=== PATIENT | female | born 1945 | race Caucasian/White ===

== ENCOUNTER → 2017-01-28 | Outpatient (CLI) | payer MEDICARE ==
[~2017-01-28] MED LIST: COUMADIN5 M2 PO; CYCLOBENZAPRINE10 MG PO; Coumadin10 MG PO; DILTIAZEM HCL180 MG PO; Ecotrin325 MG PO; NAPROSYN500 MG PO; PRAVACHOL80 MG PO; TOPROL XL100 MG PO
[2017-01-28 20:32] LABS: INTERNATIONAL NORM RATIO 1.3 (2.0-3.5); PROTHROMBIN TIME 14.4 SECONDS (9.0-12.4)
== END | disposition home or self-care (01) ==
LOC: LAB 19:45 → US 20:00
PROVIDERS: Family Medicine
DX: I48.91 Unspecified atrial fibrillation (principal); M79.89 Other specified soft tissue disorders

== ENCOUNTER → 2017-05-04 | Outpatient (CLI) | payer MEDICARE ==
[2017-05-04 19:16] LABS: BASO % 0.4 % (0.0-1.0); EOS # 0.2 10*3/uL (0.0-0.4); EOS % 2.4 % (1.0-4.0); HEMATOCRIT 41.1 % (37.0-47.0); HEMOGLOBIN 13.1 g/dl (12.0-16.0); LYMPH # 2.1 10*3/uL (1.3-4.4); LYMPH % 23.2 % (27.0-41.0); MEAN CELL VOLUME 86.5 fl (81.0-99.0); MEAN CORPUSCULAR HGB 27.6 pg (27.0-31.0); MEAN CORPUSCULAR HGB CONC 31.9 g/dl (33.0-37.0); MEAN PLATELET VOLUME 10.8 fl (9.6-12.3); MONO # 0.6 10*3/uL (0.1-1.0); NEUT # 6.2 10*3/uL (2.3-7.9); NEUT % 67.6 % (47.0-73.0); PLATELET COUNT AUTOMATED 274 10*3/uL (130-400); RED BLOOD COUNT 4.75 10*6/uL (4.10-5.10); RED CELL DISTRI WIDTH 13.5 % (0-14.5); WHITE BLOOD COUNT 9.2 10*3/uL (4.8-10.8)
[2017-05-04 19:24] LABS: INTERNATIONAL NORM RATIO 1.2 (2.0-3.5); PROTHROMBIN TIME 13.2 SECONDS (9.0-12.4)
[2017-05-04 19:53] LABS: ALBUMIN 3.2 gm/dl (3.1-4.5); ALKALINE PHOSPHATASE 81 U/L (45-117); BILIRUBIN, TOTAL 0.5 mg/dl (0.2-1.0); BUN 14 mg/dl (7-24); CARBON DIOXIDE 30 mmol/L (21-32); CHLORIDE 104 mmol/L (98-107); CHOLESTEROL 138 mg/dL (<200); EST GLOM FILT AFRICAN AMERICAN > 60 ml/min; GLUCOSE 131 mg/dL (65-99); HDL CHOLESTEROL 33 mg/dl (40-60); LDL CHOLESTEROL 57 mg/dL (9-159); SGOT/AST 13 IU/L (3-35); SGPT/ALT 19 U/L (12-78); SODIUM 141 mmol/L (136-145); TOTAL PROTEIN 7.3 gm/dL (6.4-8.2); TRIGLYCERIDES 240 mg/dl (<150); VLDL CHOLESTEROL 48 mg/dL (6-40)
[2017-05-04 19:59] LABS: THYROID STIM HORMONE (HS) 0.395 uIU/ml (0.358-4.75)
== END | disposition home or self-care (01) ==
LOC: LAB 18:02
PROVIDERS: Family Medicine
DX: Z00.01 Encounter for general adult medical examination with abnormal findings (principal); M48.07 Spinal stenosis, lumbosacral region; M47.896 Other spondylosis, lumbar region; I48.91 Unspecified atrial fibrillation; I10 Essential (primary) hypertension; E78.5 Hyperlipidemia, unspecified; Z79.899 Other long term (current) drug therapy

== ENCOUNTER 2017-06-21 08:14 | Inpatient (IN) | payer MEDICARE ==
[~2017-06-21] VITALS: Ht 165.1 cm; Wt 131.6 kg
[2017-06-21 08:21] VITALS: BP 166/85
[2017-06-21] MEDS ORDERED: COUMADIN5 M2 PO (08:27)
[2017-06-21 08:46] LABS: BASO % 0.5 % (0.0-1.0); EOS # 0.2 10*3/uL (0.0-0.4); EOS % 1.9 % (1.0-4.0); HEMATOCRIT 42.5 % (37.0-47.0); HEMOGLOBIN 13.5 g/dl (12.0-16.0); LYMPH # 1.6 10*3/uL (1.3-4.4); LYMPH % 17.8 % (27.0-41.0); MEAN CELL VOLUME 86.6 fl (81.0-99.0); MEAN CORPUSCULAR HGB 27.5 pg (27.0-31.0); MEAN CORPUSCULAR HGB CONC 31.8 g/dl (33.0-37.0); MEAN PLATELET VOLUME 10.5 fl (9.6-12.3); MONO # 0.4 10*3/uL (0.1-1.0); MONO % 4.7 % (3.0-9.0); NEUT # 6.6 10*3/uL (2.3-7.9); NEUT % 74.6 % (47.0-73.0); PLATELET COUNT AUTOMATED 240 10*3/uL (130-400); RED BLOOD COUNT 4.91 10*6/uL (4.10-5.10); RED CELL DISTRI WIDTH 13.5 % (0-14.5); WHITE BLOOD COUNT 8.9 10*3/uL (4.8-10.8)
[2017-06-21 08:54] LABS: ACT PARTIAL THROMBO TIME 27.6 SECONDS (20.8-31.5); INTERNATIONAL NORM RATIO 1.7 (2.0-3.5)
[2017-06-21 09:04] LABS: ALBUMIN 3.2 gm/dl (3.1-4.5); ALKALINE PHOSPHATASE 89 U/L (45-117); BUN 11 mg/dl (7-24); CHLORIDE 105 mmol/L (98-107); CPK 46 U/L (26-192); CREATININE 0.81 mg/dL (0.55-1.02); LIPASE 111 U/L (73-393); MAGNESIUM 2.2 mg/dL (1.5-2.1); POTASSIUM 4.2 mmol/L (3.5-5.1); SGOT/AST 17 IU/L (3-35); SGPT/ALT 20 U/L (12-78); SODIUM 139 mmol/L (136-145); TOTAL PROTEIN 7.6 gm/dL (6.4-8.2)
[2017-06-21 09:09] LABS: CKMB < 0.5 ng/ml (0.5-3.6); TROPONIN I < 0.015 ng/ml (<0.045)
[2017-06-21 09:30] LABS: BILIRUBIN NEGATIVE (NEGATIVE); BLOOD TRACE-LYSED (NEGATIVE); CLARITY CLEAR (CLEAR); COLOR YELLOW (YELLOW); GLUCOSE NEGATIVE (NEGATIVE); KETONE NEGATIVE (NEGATIVE); LEUKO ESTERASE NEGATIVE (NEGATIVE); NITRITE NEGATIVE (NEGATIVE); UROBILINOGEN 0.2 E.U./dl (0.2-1.0)
[2017-06-21 09:35] VITALS: BP 128/51
[2017-06-21 09:40] LABS: RBC 0-2 rbc/hpf (0-2)
--- NOTE | 2017-06-21 09:51 | NUR ---
RESTING IN NO DISTRESS. MY SPANN RN
[2017-06-21 10:20] VITALS: BP 152/70
--- NOTE | 2017-06-21 10:21 | NUR ---
A 72, admitted to 5E, under the services of ADOLFO Joe DO with a diagnosis of PALPITATIONS, DYSPNEA ON EXERTION. Chief complaint is FELT LIKE HEART WAS RACING. Patient arrived via ambulatory from ER. Monitor applied. Initial assessment completed. Vital signs taken and recorded. ADOLFO JOE DO notified of admission to the unit. Orders received. See assessment for past medical history, medications and allergies. Patient and/or family oriented to unit. [address] visitation policy reviewed. Clothing/patient valuable form completed. EARNESTINE GOLD
[2017-06-21] MEDS ORDERED: COUMADIN7.5 M1 PO (10:38)
[2017-06-21] MEDS ORDERED: LEXAPRO10 MG PO (10:39)
--- NOTE | 2017-06-21 10:45 | NUR ---
MEDICATIONS VERIFIED VIA LIST FROM PATIENT. PATIENT GETS MEDICATIONS VIA MAIL. DR. ADLER NOTIFIED.
[2017-06-21 16:00] VITALS: BP 153/60
--- NOTE | 2017-06-21 19:30 | NUR ---
ASSUMED CARE OF PT AT THIS TIME, SITTING UP IN BED FAMILY MEMBER VISITING CALL LIGHT WITH IN REACH
[2017-06-21 20:00] VITALS: BP 179/80
[2017-06-22] VITALS: BP 153/92
[2017-06-22 06:46] LABS: BASO % 0.5 % (0.0-1.0); EOS # 0.2 10*3/uL (0.0-0.4); EOS % 2.6 % (1.0-4.0); HEMATOCRIT 40.8 % (37.0-47.0); HEMOGLOBIN 13.3 g/dl (12.0-16.0); LYMPH # 1.6 10*3/uL (1.3-4.4); LYMPH % 19.5 % (27.0-41.0); MEAN CELL VOLUME 86.3 fl (81.0-99.0); MEAN CORPUSCULAR HGB 28.1 pg (27.0-31.0); MEAN CORPUSCULAR HGB CONC 32.6 g/dl (33.0-37.0); MEAN PLATELET VOLUME 10.3 fl (9.6-12.3); MONO # 0.3 10*3/uL (0.1-1.0); MONO % 4.1 % (3.0-9.0); NEUT # 5.9 10*3/uL (2.3-7.9); NEUT % 72.9 % (47.0-73.0); PLATELET COUNT AUTOMATED 237 10*3/uL (130-400); RED BLOOD COUNT 4.73 10*6/uL (4.10-5.10); RED CELL DISTRI WIDTH 13.5 % (0-14.5); WHITE BLOOD COUNT 8.1 10*3/uL (4.8-10.8)
--- NOTE | 2017-06-22 06:46 | NUR ---
SPOKE WITH DR MENDOZA, REQUESTING ORTHOSTATIC BPS WHEN PT IS AWAKE
[2017-06-22 07:12] LABS: BUN 13 mg/dl (7-24); CHLORIDE 103 mmol/L (98-107); CHOLESTEROL 153 mg/dL (<200); CREATININE 0.76 mg/dL (0.55-1.02); FREE T4 1.24 ng/dl (0.76-1.46); HDL CHOLESTEROL 32 mg/dl (40-60); LDL CHOLESTEROL 84 mg/dL (9-159); PHOSPHOROUS 3.2 mg/dL (2.5-4.9); POTASSIUM 3.8 mmol/L (3.5-5.1); SODIUM 139 mmol/L (136-145); TRIGLYCERIDES 186 mg/dl (<150); VLDL CHOLESTEROL 37 mg/dL (6-40)
[2017-06-22 07:13] LABS: INTERNATIONAL NORM RATIO 1.7 (2.0-3.5)
[2017-06-22 07:18] LABS: THYROID STIM HORMONE (HS) 0.267 uIU/ml (0.358-4.75)
[2017-06-22 08:00] VITALS: BP 155/98
--- NOTE | 2017-06-22 08:30 | NUR ---
Oyster Tonger in to talk to patient. Patient states lives at HOME IN DOUBLE WIDE with SON AND DAUGHTER. There are 5 steps in the home. Physician: NO PCP Pharmacy: [facility] Home health services: NONE Patient's level of ADLs: INDEPENDENT Patient has working utilities: YES DME: NONE Follow-up physician's appointment after d/c: WILL BE MADE PRIOR TO DC Does patient want to access PORTAL?: Discharge plan HOME. SACHIN BRUCE
--- NOTE | 2017-06-22 08:35 | NUR ---
PATIENT RESTING AT PRESENT.
--- NOTE | 2017-06-22 08:44 | NUR ---
PHYSICAL THERAPY PAtient is 100 % (I) all mobility. D/C PT, no skills/needs. Thank you for this referral. Lana Yepez,PT
--- NOTE | 2017-06-22 10:00 | NUR ---
AM MEDS TAKEN.
[2017-06-22 12:00] VITALS: BP 136/82
[2017-06-22] MEDS ORDERED: COUMADIN7.5 M1 PO (13:36)
[2017-06-22] MEDS ORDERED: DILTIAZEM CD240 MG PO (13:36)
[2017-06-22] MEDS ORDERED: VITAMIN D31000 UNI1 PO (13:41)
--- NOTE | 2017-06-22 16:06 | NUR ---
HEP LOCK REMOVED FOR DISCHARGE. Discharge instructions reviewed with patient/family. Patient receptive and verbalizes understanding. Follow-up care arranged. Written instructions given to patient/family. TANIYA CAMARILLO
== END 2017-06-22 16:06 | disposition home or self-care (01) | DRG 309 ==
LOC: ED 08:14 → 5E 09:46 → EDHOLD 09:46 → 5E 09:53
PROVIDERS: Emergency Medicine; Student in an Organized Health Care Education/Training Program; ADMIT Internal Medicine
DX: I48.0 Paroxysmal atrial fibrillation (principal); D68.69 Other thrombophilia; E83.41 Hypermagnesemia; I10 Essential (primary) hypertension; E78.5 Hyperlipidemia, unspecified; Z79.01 Long term (current) use of anticoagulants; Z85.3 Personal history of malignant neoplasm of breast; Z85.42 Personal history of malignant neoplasm of other parts of uterus; Z90.710 Acquired absence of both cervix and uterus; Z90.12 Acquired absence of left breast and nipple; Z98.51 Tubal ligation status; Z87.891 Personal history of nicotine dependence; Z82.49 Family history of ischemic heart disease and other diseases of the circulatory system; Z83.3 Family history of diabetes mellitus; Z88.8 Allergy status to other drugs, medicaments and biological substances; Z79.899 Other long term (current) drug therapy

== ENCOUNTER 2017-09-04 16:39 | Emergency (ER) | payer MEDICARE ==
[~2017-09-04] VITALS: Wt 134.3 kg
[~2017-09-04 16:39] MED LIST changes: +COUMADIN7.5 M1 PO; +DILTIAZEM CD240 MG PO; +LEXAPRO10 MG PO; +VITAMIN D31000 UNI1 PO
[2017-09-04] MEDS ORDERED: NORCO 5-325 TA1 EACH PO (18:29)
== END 2017-09-04 18:42 | disposition home or self-care (01) ==
LOC: ED 16:39
DX: M25.562 Pain in left knee (principal); Z87.891 Personal history of nicotine dependence; Z90.710 Acquired absence of both cervix and uterus; Z98.51 Tubal ligation status; Z98.890 Other specified postprocedural states; Z79.899 Other long term (current) drug therapy; Z79.01 Long term (current) use of anticoagulants; Z88.8 Allergy status to other drugs, medicaments and biological substances

== ENCOUNTER 2017-10-23 12:02 | Emergency (ER) | payer MEDICARE ==
[~2017-10-23] VITALS: Ht 165.1 cm; Wt 134.3 kg
[~2017-10-23 12:02] MED LIST changes: +NORCO 5-325 TA1 EACH PO
[2017-10-23] MEDS ORDERED: TRAMADOL HCL50 MG PO (12:11)
[2017-10-23] MEDS ORDERED: NAPROSYN500 MG PO (13:57)
== END 2017-10-23 13:59 | disposition home or self-care (01) ==
LOC: ED 12:02
DX: S93.402A Sprain of unspecified ligament of left ankle, initial encounter (principal); M77.32 Calcaneal spur, left foot; Z87.891 Personal history of nicotine dependence; Z98.51 Tubal ligation status; Z98.890 Other specified postprocedural states; Z90.710 Acquired absence of both cervix and uterus; Z88.6 Allergy status to analgesic agent; Z88.5 Allergy status to narcotic agent; Z79.01 Long term (current) use of anticoagulants; Z79.899 Other long term (current) drug therapy; X50.1XXA Overexertion from prolonged static or awkward postures, initial encounter; Y93.89 Activity, other specified; Y92.89 Other specified places as the place of occurrence of the external cause; Y99.9 Unspecified external cause status

== ENCOUNTER → 2018-08-17 | Outpatient (CLI) | payer MEDICARE ==
[~2018-08-17] MED LIST changes: +TRAMADOL HCL50 MG PO
[2018-08-17 17:12] LABS: BASO % 0.5 % (0.0-1.0); EOS # 0.3 10*3/uL (0.0-0.4); HEMOGLOBIN 13.8 g/dl (12.0-16.0); LYMPH % 24.4 % (27.0-41.0); MEAN CELL VOLUME 84.8 fl (81.0-99.0); MEAN CORPUSCULAR HGB 27.2 pg (27.0-31.0); MEAN CORPUSCULAR HGB CONC 32.1 g/dl (33.0-37.0); MEAN PLATELET VOLUME 10.9 fl (9.6-12.3); MONO # 0.5 10*3/uL (0.1-1.0); MONO % 5.7 % (3.0-9.0); NEUT # 5.4 10*3/uL (2.3-7.9); PLATELET COUNT AUTOMATED 271 10*3/uL (130-400); RED BLOOD COUNT 5.07 10*6/uL (4.10-5.10); RED CELL DISTRI WIDTH 13.8 % (0-14.5); WHITE BLOOD COUNT 8.2 10*3/uL (4.8-10.8)
[2018-08-17 17:30] LABS: ALBUMIN 3.4 gm/dl (3.1-4.5); ALKALINE PHOSPHATASE 83 U/L (45-117); BUN 18 mg/dl (7-24); CHLORIDE 105 mmol/L (98-107); CREATININE 0.84 mg/dL (0.55-1.02); POTASSIUM 4.2 mmol/L (3.5-5.1); SGOT/AST 9 IU/L (3-35); SGPT/ALT 15 U/L (12-78); SODIUM 138 mmol/L (136-145); TOTAL PROTEIN 7.4 gm/dL (6.4-8.2)
== END | disposition home or self-care (01) ==
LOC: LAB 16:42
PROVIDERS: Registered Nurse Flight
DX: R31.9 Hematuria, unspecified (principal)

== ENCOUNTER 2018-09-27 17:18 | Inpatient (IN) | payer MEDICARE ==
[~2018-09-27] VITALS: Ht 165.1 cm; Wt 125.8 kg
[2018-09-27] VITALS (8 sets, daily range): BP systolic 138–166; BP diastolic 58–78
[2018-09-27 18:19] LABS: BILIRUBIN NEGATIVE (NEGATIVE); BLOOD 3+ (NEGATIVE); CLARITY CLOUDY (CLEAR); COLOR BROWN (YELLOW); GLUCOSE NEGATIVE (NEGATIVE); KETONE TRACE (NEGATIVE); NITRITE POSITIVE (NEGATIVE); PH 5.5 (5.0-9.0); SPECIFIC GRAVITY 1.025 (1.005-1.030)
[2018-09-27 18:23] LABS: LEUKO ESTERASE TRACE (NEGATIVE)
[2018-09-27 18:24] LABS: RBC TNTC rbc/hpf (0-2)
[2018-09-27 18:24] LABS: BASO % 0.3 % (0.0-1.0); EOS # 0.1 10*3/uL (0.0-0.4); EOS % 0.9 % (1.0-4.0); HEMATOCRIT 44.7 % (37.0-47.0); HEMOGLOBIN 14.3 g/dl (12.0-16.0); LYMPH # 1.7 10*3/uL (1.3-4.4); LYMPH % 15.4 % (27.0-41.0); MEAN CELL VOLUME 84.2 fl (81.0-99.0); MEAN CORPUSCULAR HGB 26.9 pg (27.0-31.0); MEAN PLATELET VOLUME 9.8 fl (9.6-12.3); MONO # 0.6 10*3/uL (0.1-1.0); MONO % 5.5 % (3.0-9.0); NEUT # 8.8 10*3/uL (2.3-7.9); NEUT % 77.5 % (47.0-73.0); PLATELET COUNT AUTOMATED 307 10*3/uL (130-400); RED BLOOD COUNT 5.31 10*6/uL (4.10-5.10); RED CELL DISTRI WIDTH 13.6 % (0-14.5); WHITE BLOOD COUNT 11.3 10*3/uL (4.8-10.8)
[2018-09-27 18:39] LABS: ALBUMIN 3.1 gm/dl (3.1-4.5); ALKALINE PHOSPHATASE 94 U/L (45-117); BUN 15 mg/dl (7-24); CHLORIDE 105 mmol/L (98-107); CREATININE 1.05 mg/dL (0.55-1.02); LIPASE 65 U/L (73-393); POTASSIUM 4.1 mmol/L (3.5-5.1); SGOT/AST 12 IU/L (3-35); SGPT/ALT 17 U/L (12-78); SODIUM 139 mmol/L (136-145); TOTAL PROTEIN 7.6 gm/dL (6.4-8.2)
[2018-09-27 18:50] LABS: ACT PARTIAL THROMBO TIME 66.3 SECONDS (20.8-31.5)
[2018-09-27 18:53] LABS: INTERNATIONAL NORM RATIO > 11.7 (2.0-3.5)
--- NOTE | 2018-09-27 18:54 | NUR ---
PT > 130 sec, INR 11.7 L. COSME NOTIFIED
--- NOTE | 2018-09-27 19:55 | NUR ---
Time: 1954 A 73 year old FEMALE admitted to 4E under services of WANDER ADAMS DO. Pt. arrived via wheel chair from ER. Chief complaint: UTI, WARFARIN COAGULOPATHY. SHORTY PICHARDO
--- NOTE | 2018-09-27 21:30 | NUR ---
RN INITIATED FFP. WILL CONTINUE TO MONITOR.
--- NOTE | 2018-09-27 23:37 | NUR ---
DR. LAWSON CALLED AT THIS TIME PERTAINING TO ORDER FOR 4 UNITS OF FFP. ASKED IF HE WOULD LIKE ALL UNITS TO BE TRANSFUSED SINCE THIS ORDER WAS PUT IN IT THE ER AND SHE HAD ALREADY RECIEVED 5MG OF VIT K. DR. LAWSON STATED HE WOULD CALL BACK.
--- NOTE | 2018-09-27 23:40 | NUR ---
DR. LAWSON STATED TO GIVE ALL 4 UNITS
[2018-09-28] VITALS: BP 149/67
--- NOTE | 2018-09-28 01:42 | NUR ---
24 HR chart check completed.
--- NOTE | 2018-09-28 02:18 | NUR ---
MED REC REVIEWED WITH PATIENT. PATIENT STATES SHE ONLY TAKES HER METOPROLOL ONCE A DAY, BUT THE MEDICATION CLAIM HISTORY STATES SHE TAKES IT TWICE A DAY.
[2018-09-28] MEDS ORDERED: TOPROL XL100 MG PO (02:21)
--- NOTE | 2018-09-28 05:38 | NUR ---
NOTIFIED DR. LAWSON AT THIS TIME THAT PATIENTS HEART RATE HAS SLOWLY MADE ITS WAY TO TO 110'S AND WILL OCCASIONALLY GO TO 120'S. VERIFIED PATIENTS MED REC WITH HER ONCE AGAIN AND PATIENT STATES SHE TAKES TWO HEART RATE MEDICATIONS, DILTIAZEM 240 DAILY AND METOPROLOL SUCCINATE 100MG DAILY. ALSO NOTIFIED HIM THAT THERE IS A CONFLICT WITH THE MED CLAIM HISTORY AND HER METOPROLOL SUCCINATE IT LOOKS LIKE IT HAS BEEN FILLED LIKE SHE SHOULD BE TAKING IT TWICE A DAY. DR. LAWSON STATED WE SHOULD PROBABLY GET IT VERIFIED WITH FAMILY SINCE THE PATIENT GETS HER MEDS MAILED TO HER. BUT HE ORDERED FOR HER TO HAVE A ONE TIME DOSE OF METOLPROLOL SUCCINATE UNTIL WE CAN FIGURE OUT WHAT HER CORRECT FREQUENCY SHOULD BE
--- NOTE | 2018-09-28 05:46 | NUR ---
ASKED PATIENT IF ANYONE WOULD BE ABLE TO BRING IN HER PRESCRIPTION FROM HOME FOR HER METORPOLOL AND SHE STATED HER DAUGHTER WOULD BE ABLE TO
[2018-09-28 06:27] LABS: BASO % 0.2 % (0.0-1.0); EOS # 0.1 10*3/uL (0.0-0.4); EOS % 1.5 % (1.0-4.0); HEMATOCRIT 39.5 % (37.0-47.0); LYMPH # 1.3 10*3/uL (1.3-4.4); LYMPH % 15.6 % (27.0-41.0); MEAN CELL VOLUME 86.1 fl (81.0-99.0); MEAN CORPUSCULAR HGB 26.4 pg (27.0-31.0); MEAN CORPUSCULAR HGB CONC 30.6 g/dl (33.0-37.0); MEAN PLATELET VOLUME 10.6 fl (9.6-12.3); MONO # 0.6 10*3/uL (0.1-1.0); MONO % 7.1 % (3.0-9.0); NEUT # 6.5 10*3/uL (2.3-7.9); NEUT % 75.3 % (47.0-73.0); PLATELET COUNT AUTOMATED 240 10*3/uL (130-400); RED BLOOD COUNT 4.59 10*6/uL (4.10-5.10); RED CELL DISTRI WIDTH 13.4 % (0-14.5); WHITE BLOOD COUNT 8.6 10*3/uL (4.8-10.8)
[2018-09-28 06:44] LABS: HEMOGLOBIN 12.1 g/dl (12.0-16.0)
[2018-09-28 06:56] LABS: ACT PARTIAL THROMBO TIME 31.5 SECONDS (20.8-31.5); INTERNATIONAL NORM RATIO 1.7 (2.0-3.5)
[2018-09-28 06:58] LABS: ALBUMIN 2.9 gm/dl (3.1-4.5); ALKALINE PHOSPHATASE 86 U/L (45-117); BUN 12 mg/dl (7-24); CHLORIDE 106 mmol/L (98-107); CHOLESTEROL 124 mg/dL (<200); CREATININE 0.73 mg/dL (0.55-1.02); FREE T4 1.51 ng/dl (0.76-1.46); HDL CHOLESTEROL 29 mg/dl (40-60); LDL CHOLESTEROL 65 mg/dL (9-159); PHOSPHOROUS 3.1 mg/dL (2.5-4.9); POTASSIUM 3.5 mmol/L (3.5-5.1); SGOT/AST 10 IU/L (3-35); SGPT/ALT 13 U/L (12-78); SODIUM 141 mmol/L (136-145); TOTAL PROTEIN 6.8 gm/dL (6.4-8.2); TRIGLYCERIDES 148 mg/dl (<150); VLDL CHOLESTEROL 30 mg/dL (6-40)
[2018-09-28 07:54] LABS: VITAMIN D, 25-HYDROXY 37.4 ng/mL (30-100)
[2018-09-28 08:00] VITALS: BP 148/80
--- NOTE | 2018-09-28 09:00 | NUR ---
Marketing And Communications Officer in to talk to patient. Patient states lives at home with family. There are few steps in the home. Physician: jay miranda Pharmacy: mail Home health services: none Patient's level of ADLs: INDEPENDENT Patient has working utilities: all working DME: none Follow-up physician's appointment after d/c: will be made by hospitalist nurse director upon discharge Does patient want to access PORTAL?: no Discharge plan discussed with patient, patient lives at home with family, she is independent in adls and ambulation, works and drives, patient will be going home when able and denies any home needs. ARTURO ADAIR
[2018-09-28 12:00] VITALS: BP 148/73
[2018-09-28 16:00] VITALS: BP 132/61; BP 134/50
--- NOTE | 2018-09-28 19:30 | NUR ---
ASSUMED CARE OF PATIENT AT THIS TIME. PT AWAKE IN BED, RESPIRATIONS EASY, NO S/S OF DISTRESS NOTED. NO COMPLAINTS VOICED. WILL MONITOR. CALL LIGHT LEFT IN REACH.
[2018-09-28 20:00] VITALS: BP 136/73
[2018-09-29] VITALS: BP 144/84
--- NOTE | 2018-09-29 00:49 | NUR ---
PT AWAKE IN BED AT THIS TIME. REQUESTING POPSICLE AND WARM BLANKET. BOTH PROVIDED TO PATIENT PER REQUEST. NO COMPLAINTS VOICED/NO S/S OF DISTRESS NOTED. WILL MONITOR. CALL LIGHT LEFT IN REACH.
[2018-09-29 06:05] LABS: BASO % 0.4 % (0.0-1.0); EOS # 0.3 10*3/uL (0.0-0.4); EOS % 3.2 % (1.0-4.0); HEMATOCRIT 39.9 % (37.0-47.0); HEMOGLOBIN 12.8 g/dl (12.0-16.0); LYMPH # 1.6 10*3/uL (1.3-4.4); LYMPH % 18.9 % (27.0-41.0); MEAN CELL VOLUME 85.4 fl (81.0-99.0); MEAN CORPUSCULAR HGB 27.4 pg (27.0-31.0); MEAN CORPUSCULAR HGB CONC 32.1 g/dl (33.0-37.0); MEAN PLATELET VOLUME 10.5 fl (9.6-12.3); MONO # 0.5 10*3/uL (0.1-1.0); MONO % 6.3 % (3.0-9.0); NEUT % 70.7 % (47.0-73.0); PLATELET COUNT AUTOMATED 271 10*3/uL (130-400); RED BLOOD COUNT 4.67 10*6/uL (4.10-5.10); RED CELL DISTRI WIDTH 13.4 % (0-14.5); WHITE BLOOD COUNT 8.5 10*3/uL (4.8-10.8)
[2018-09-29 06:33] LABS: INTERNATIONAL NORM RATIO 1.1 (2.0-3.5)
[2018-09-29 06:36] LABS: ALBUMIN 2.8 gm/dl (3.1-4.5); ALKALINE PHOSPHATASE 83 U/L (45-117); BUN 16 mg/dl (7-24); CHLORIDE 104 mmol/L (98-107); CREATININE 0.79 mg/dL (0.55-1.02); POTASSIUM 3.8 mmol/L (3.5-5.1); SGOT/AST 10 IU/L (3-35); SGPT/ALT 14 U/L (12-78); SODIUM 139 mmol/L (136-145)
--- NOTE | 2018-09-29 07:51 | NUR ---
IN BED AWAKE ALERT AND ORIENTED X3, DENIES NEEDS OTHER THAN WANTING TO GO HOME. SEE ASSESS. WILL CONT TO MONITOR. CALL LIGHT IN REACH.
--- NOTE | 2018-09-29 09:00 | NUR ---
case management visits with patient, patient states she will be going home when able and denies any home needs
[2018-09-29] MEDS ORDERED: XARE20MG PO (10:09)
[2018-09-29] MEDS ORDERED: CIPRO500 MG PO (10:10)
--- NOTE | 2018-09-29 11:37 | NUR ---
PT DISCHARGED AT THIS TIME. IV REMOVED AND PRESSURE DRESSING APPLIED. HEART MONITOR RETURNED TO FLOOR. VERBALIZED UNDERSTANDING OF DISCHARGE INSTRUCTIONS.
== END 2018-09-29 11:37 | disposition home or self-care (01) | DRG 871 ==
LOC: ED 17:18 → 4E 19:06 → EDHOLD 19:06 → 4E 20:01
PROVIDERS: Internal Medicine; Nurse Practitioner Family; Student in an Organized Health Care Education/Training Program; ADMIT Internal Medicine
PROC: 30233K1 Transfusion of Nonautologous Frozen Plasma into Peripheral Vein, Percutaneous Approach (ICD-10-PCS; principal; 2018-09-27)
PROC: 30233L1 Transfusion of Nonautologous Fresh Plasma into Peripheral Vein, Percutaneous Approach (ICD-10-PCS; principal; 2018-09-27)
DX: A41.9 Sepsis, unspecified organism (principal); N17.0 Acute kidney failure with tubular necrosis; E44.0 Moderate protein-calorie malnutrition; Z68.42 Body mass index [BMI] 45.0-49.9, adult; N30.01 Acute cystitis with hematuria; T45.515A Adverse effect of anticoagulants, initial encounter; I48.0 Paroxysmal atrial fibrillation; R79.1 Abnormal coagulation profile; I10 Essential (primary) hypertension; E66.9 Obesity, unspecified; E11.65 Type 2 diabetes mellitus with hyperglycemia; Z79.4 Long term (current) use of insulin; E53.9 Vitamin B deficiency, unspecified; E05.90 Thyrotoxicosis, unspecified without thyrotoxic crisis or storm; Z90.710 Acquired absence of both cervix and uterus; Z98.51 Tubal ligation status; Z87.891 Personal history of nicotine dependence; Z83.6 Family history of other diseases of the respiratory system; Z83.3 Family history of diabetes mellitus; Z82.49 Family history of ischemic heart disease and other diseases of the circulatory system; M54.30 Sciatica, unspecified side

== ENCOUNTER → 2018-10-15 | Outpatient (CLI) | payer MEDICARE ==
[~2018-10-15] MED LIST changes: +CIPRO500 MG PO; +XARE20MG PO
== END | disposition home or self-care (01) ==
LOC: CT 09:00
DX: K43.9 Ventral hernia without obstruction or gangrene (principal); R91.1 Solitary pulmonary nodule; K59.00 Constipation, unspecified; I10 Essential (primary) hypertension; Z90.49 Acquired absence of other specified parts of digestive tract; Z90.710 Acquired absence of both cervix and uterus; Z85.3 Personal history of malignant neoplasm of breast

== ENCOUNTER → 2018-12-21 | Outpatient (CLI) | payer MEDICARE ==
[~2018-12-21] MED LIST changes: +DILTIAZEM 24HR360 MG PO; +GLIPIZIDE XL2.5 M1 PO; -LEXAPRO10 MG PO; +LEXAPRO20 MG PO; +ZESTRIL10 MG PO
== END | disposition home or self-care (01) ==
LOC: RESCLI 01:44
DX: I48.0 Paroxysmal atrial fibrillation (principal); E78.5 Hyperlipidemia, unspecified; I10 Essential (primary) hypertension; F32.9 Major depressive disorder, single episode, unspecified; E55.9 Vitamin D deficiency, unspecified; Z79.899 Other long term (current) drug therapy; Z79.82 Long term (current) use of aspirin; Z87.891 Personal history of nicotine dependence; Z88.8 Allergy status to other drugs, medicaments and biological substances

== ENCOUNTER → 2019-01-27 | Outpatient (CLI) | payer MEDICARE ==
--- NOTE | ~2019-01-27 | EKG ---
[place], [place] ELECTROCARDIOGRAM REPORT NAME: ZARIA HILLIARD UNIT #: [id number] ROOM: DOCTOR: EPIPHANY DRAFT REPORT BIRTHDATE: [birth year] [facility] Test Date: 2019-01-27 Test Time: 16:43:34 Pat Name: ZARIA HILLIARD Department: Room: Gender: F Glass Tinter: 18 : 1945 Requested By: LIZA ZAMORA Order Number: [id number] Reading MD: Facundo Nunez MD Measurements Intervals Grady Rate: 54 P: AK: QRS: -5 QRSD: 127 T: 26 QT: 489 QTc: 464 Interpretive Statements Atrial flutter IVCD, consider atypical RBBB Anterior infarct, old Electronically Signed On 02-02-2019 14:26:26 PDT by Facundo Nunez MD CM:EKGRPT:ELECTROCARDIOGRAM REPORT [id number] LIZA SERRANO DRAFT REPORT LIZA ZAMORA
== END | disposition home or self-care (01) ==
LOC: US 00:47
DX: E04.1 Nontoxic single thyroid nodule (principal)

== ENCOUNTER → 2019-05-21 | Outpatient (CLI) | payer MEDICARE ==
[2019-05-21 15:15] LABS: HEMATOCRIT 41.4 % (37.0-47.0); HEMOGLOBIN 12.8 g/dl (12.0-16.0); MEAN CELL VOLUME 88.3 fl (81.0-99.0); MEAN CORPUSCULAR HGB 27.3 pg (27.0-31.0); MEAN CORPUSCULAR HGB CONC 30.9 g/dl (33.0-37.0); RED BLOOD COUNT 4.69 10*6/uL (4.10-5.10); RED CELL DISTRI WIDTH 13.8 % (0-14.5); WHITE BLOOD COUNT 8.1 10*3/uL (4.8-10.8)
[2019-05-21 15:32] LABS: ALBUMIN 3.2 gm/dl (3.1-4.5); ALKALINE PHOSPHATASE 79 U/L (45-117); BUN 15 mg/dl (7-24); CHLORIDE 105 mmol/L (98-107); CHOLESTEROL 144 mg/dL (<200); HDL CHOLESTEROL 33 mg/dl (40-60); LDL CHOLESTEROL 78 mg/dL (9-159); POTASSIUM 4.5 mmol/L (3.5-5.1); SGOT/AST 12 IU/L (3-35); SGPT/ALT 13 U/L (12-78); SODIUM 139 mmol/L (136-145); TOTAL PROTEIN 7.5 gm/dL (6.4-8.2); TRIGLYCERIDES 166 mg/dl (<150); VLDL CHOLESTEROL 33 mg/dL (6-40)
[2019-05-21 15:40] LABS: THYROID STIM HORMONE (HS) 0.085 uIU/ml (0.358-4.75)
== END | disposition home or self-care (01) ==
LOC: LAB 14:20
PROVIDERS: Registered Nurse Flight
DX: E11.9 Type 2 diabetes mellitus without complications (principal); I10 Essential (primary) hypertension; E04.1 Nontoxic single thyroid nodule; E78.5 Hyperlipidemia, unspecified

== ENCOUNTER → 2019-06-08 | Outpatient (CLI) | payer MEDICARE | END | disposition home or self-care (01) | LOC: LAB 11:33 | DX: C34.32 Malignant neoplasm of lower lobe, left bronchus or lung (principal); E11.9 Type 2 diabetes mellitus without complications; I10 Essential (primary) hypertension; E04.1 Nontoxic single thyroid nodule; E78.5 Hyperlipidemia, unspecified; Z87.891 Personal history of nicotine dependence ==

== ENCOUNTER → 2019-07-22 | Outpatient (CLI) | payer MEDICARE ==
[2019-07-22 09:53] LABS: CREATININE 0.94 mg/dL (0.55-1.02)
== END | disposition home or self-care (01) ==
LOC: CT 09:00 → LAB 09:22
PROVIDERS: Internal Medicine Hematology & Oncology
DX: C34.92 Malignant neoplasm of unspecified part of left bronchus or lung (principal); C34.32 Malignant neoplasm of lower lobe, left bronchus or lung; D05.11 Intraductal carcinoma in situ of right breast; Z85.40 Personal history of malignant neoplasm of unspecified female genital organ

== ENCOUNTER 2019-08-18 22:59 | Emergency (ER) | payer MEDICARE ==
[~2019-08-18] VITALS: Ht 165.1 cm; Wt 126.6 kg
--- NOTE | ~2019-08-18 | EKG ---
[place], [place] ELECTROCARDIOGRAM REPORT NAME: ZARIA HILLIARD UNIT #: [id number] ROOM: DOCTOR: EPIPHANY DRAFT REPORT BIRTHDATE: [birth year] [facility] Test Date: 2019-08-18 Test Time: 23:44:24 Pat Name: ZARIA HILLIARD Department: Room: Gender: F Aviation Neuropsychologist: : 1945 Requested By: PIPO VAZQUEZ Order Number: [id number] Reading MD: Earnest Pardo MD Measurements Intervals Malone Rate: 74 P: SD: QRS: -3 QRSD: 87 T: 17 QT: 409 QTc: 454 Interpretive Statements Atrial flutter/fibrillation Second deg AVB, Mobitz I (Wenckebach) Borderline low voltage, extremity leads Probable anteroseptal infarct, old Compared to ECG 01/27/2019 16:43:34 No significant changes Electronically Signed On 08-20-2019 8:49:05 PST by Earnest Pardo MD CM:EKGRPT:ELECTROCARDIOGRAM REPORT [id number] IPPO VAZQUEZ EPIPHANY DRAFT REPORT PIPO VAZQUEZ
[2019-08-18 23:22] LABS: BASO % 0.5 % (0.0-1.0); EOS # 0.2 10*3/uL (0.0-0.4); EOS % 1.9 % (1.0-4.0); HEMATOCRIT 40.2 % (37.0-47.0); LYMPH # 1.9 10*3/uL (1.3-4.4); LYMPH % 21.9 % (27.0-41.0); MEAN CELL VOLUME 89.9 fl (81.0-99.0); MEAN CORPUSCULAR HGB 29.1 pg (27.0-31.0); MEAN CORPUSCULAR HGB CONC 32.3 g/dl (33.0-37.0); MEAN PLATELET VOLUME 10.4 fl (9.6-12.3); MONO # 0.7 10*3/uL (0.1-1.0); MONO % 7.5 % (3.0-9.0); NEUT # 5.9 10*3/uL (2.3-7.9); NEUT % 67.7 % (47.0-73.0); PLATELET COUNT AUTOMATED 223 10*3/uL (130-400); RED BLOOD COUNT 4.47 10*6/uL (4.10-5.10); RED CELL DISTRI WIDTH 13.4 % (0-14.5); WHITE BLOOD COUNT 8.7 10*3/uL (4.8-10.8)
[2019-08-18 23:35] LABS: ACT PARTIAL THROMBO TIME 23.6 SECONDS (20.0-32.1); INTERNATIONAL NORM RATIO 0.9 (2.0-3.5)
[2019-08-18 23:39] LABS: ALKALINE PHOSPHATASE 53 U/L (45-117); BUN 18 mg/dl (7-24); CHLORIDE 107 mmol/L (98-107); CREATININE 0.86 mg/dL (0.55-1.02); LIPASE 107 U/L (73-393); POTASSIUM 4.2 mmol/L (3.5-5.1); SGOT/AST 9 IU/L (3-35); SGPT/ALT 13 U/L (12-78); SODIUM 138 mmol/L (136-145)
[2019-08-18 23:44] LABS: TROPONIN I < 0.015 ng/ml (<0.045)
[2019-08-19 01:24] LABS: BILIRUBIN NEGATIVE (NEGATIVE); BLOOD NEGATIVE (NEGATIVE); CLARITY CLEAR (CLEAR); COLOR YELLOW (YELLOW); GLUCOSE NEGATIVE (NEGATIVE); KETONE NEGATIVE (NEGATIVE); LEUKO ESTERASE NEGATIVE (NEGATIVE); NITRITE NEGATIVE (NEGATIVE); PH 5.5 (5.0-9.0); SPECIFIC GRAVITY <= 1.005 (1.005-1.030); UROBILINOGEN 0.2 E.U./dl (0.2-1.0)
[2019-08-19 01:30] LABS: BACTERIA TRACE; RBC 0-2 rbc/hpf (0-2)
== END 2019-08-19 03:50 | disposition short-term general hospital (02) ==
LOC: ED 22:59
PROVIDERS: Nurse Practitioner Family
DX: I65.22 Occlusion and stenosis of left carotid artery (principal); R47.01 Aphasia; I10 Essential (primary) hypertension; E11.9 Type 2 diabetes mellitus without complications; I48.91 Unspecified atrial fibrillation; E78.5 Hyperlipidemia, unspecified; I48.0 Paroxysmal atrial fibrillation; Z88.6 Allergy status to analgesic agent; Z88.8 Allergy status to other drugs, medicaments and biological substances; Z79.899 Other long term (current) drug therapy; Z87.891 Personal history of nicotine dependence

== ENCOUNTER → 2019-10-06 | Outpatient (CLI) | payer MEDICARE | END | disposition home or self-care (01) | LOC: RESCLI 08:54 | DX: Z12.11 Encounter for screening for malignant neoplasm of colon (principal); I48.0 Paroxysmal atrial fibrillation; E78.5 Hyperlipidemia, unspecified; I10 Essential (primary) hypertension; E55.9 Vitamin D deficiency, unspecified; F32.9 Major depressive disorder, single episode, unspecified; C50.911 Malignant neoplasm of unspecified site of right female breast; G47.30 Sleep apnea, unspecified; I48.92 Unspecified atrial flutter; R00.0 Tachycardia, unspecified; R73.03 Prediabetes; Z79.4 Long term (current) use of insulin; Z79.899 Other long term (current) drug therapy; Z88.8 Allergy status to other drugs, medicaments and biological substances ==

== ENCOUNTER → 2019-10-28 | Outpatient (CLI) | payer MEDICARE | END | disposition home or self-care (01) | LOC: CT 09:00 | DX: I25.10 Atherosclerotic heart disease of native coronary artery without angina pectoris (principal); C34.32 Malignant neoplasm of lower lobe, left bronchus or lung; C34.92 Malignant neoplasm of unspecified part of left bronchus or lung; D05.11 Intraductal carcinoma in situ of right breast; Z85.42 Personal history of malignant neoplasm of other parts of uterus; Z90.12 Acquired absence of left breast and nipple ==

== ENCOUNTER → 2019-12-01 | Outpatient (CLI) | payer MEDICARE ==
[2019-12-01 11:34] LABS: BASO % 0.4 % (0.0-1.0); EOS # 0.2 10*3/uL (0.0-0.4); EOS % 1.9 % (1.0-4.0); HEMATOCRIT 40.3 % (37.0-47.0); HEMOGLOBIN 12.6 g/dl (12.0-16.0); LYMPH # 1.5 10*3/uL (1.3-4.4); LYMPH % 13.5 % (27.0-41.0); MEAN CELL VOLUME 88.8 fl (81.0-99.0); MEAN CORPUSCULAR HGB 27.8 pg (27.0-31.0); MEAN CORPUSCULAR HGB CONC 31.3 g/dl (33.0-37.0); MEAN PLATELET VOLUME 9.9 fl (9.6-12.3); MONO # 0.5 10*3/uL (0.1-1.0); MONO % 4.5 % (3.0-9.0); NEUT # 8.7 10*3/uL (2.3-7.9); NEUT % 79.2 % (47.0-73.0); PLATELET COUNT AUTOMATED 213 10*3/uL (130-400); RED BLOOD COUNT 4.54 10*6/uL (4.10-5.10); RED CELL DISTRI WIDTH 13.1 % (0-14.5)
[2019-12-01 11:51] LABS: ALBUMIN 2.8 gm/dl (3.1-4.5); ALKALINE PHOSPHATASE 68 U/L (45-117); BUN 13 mg/dl (7-24); CHLORIDE 107 mmol/L (98-107); CREATININE 0.93 mg/dL (0.55-1.02); POTASSIUM 4.6 mmol/L (3.5-5.1); SGOT/AST 9 IU/L (3-35); SGPT/ALT 12 U/L (12-78); SODIUM 139 mmol/L (136-145); TOTAL PROTEIN 6.9 gm/dL (6.4-8.2)
== END | disposition home or self-care (01) ==
LOC: LAB 00:29 → RESCLI 00:29
PROVIDERS: Internal Medicine Hematology & Oncology
DX: C34.92 Malignant neoplasm of unspecified part of left bronchus or lung (principal); C34.32 Malignant neoplasm of lower lobe, left bronchus or lung; D05.11 Intraductal carcinoma in situ of right breast; Z85.42 Personal history of malignant neoplasm of other parts of uterus

== ENCOUNTER → 2020-03-26 | Outpatient (CLI) | payer MEDICARE ==
[2020-03-26 14:48] LABS: BASO % 0.3 % (0.0-1.0); EOS # 0.1 10*3/uL (0.0-0.4); HEMATOCRIT 39.6 % (37.0-47.0); LYMPH # 1.3 10*3/uL (1.3-4.4); LYMPH % 11.8 % (27.0-41.0); MEAN CELL VOLUME 87.4 fl (81.0-99.0); MEAN CORPUSCULAR HGB 27.4 pg (27.0-31.0); MEAN CORPUSCULAR HGB CONC 31.3 g/dl (33.0-37.0); MEAN PLATELET VOLUME 10.2 fl (9.6-12.3); MONO # 0.4 10*3/uL (0.1-1.0); MONO % 3.8 % (3.0-9.0); NEUT # 9.3 10*3/uL (2.3-7.9); NEUT % 82.4 % (47.0-73.0); PLATELET COUNT AUTOMATED 279 10*3/uL (130-400); RED BLOOD COUNT 4.53 10*6/uL (4.10-5.10); WHITE BLOOD COUNT 11.3 10*3/uL (4.8-10.8)
[2020-03-26 15:07] LABS: ALBUMIN 2.7 gm/dl (3.1-4.5); ALKALINE PHOSPHATASE 76 U/L (45-117); BUN 16 mg/dl (7-24); CHLORIDE 105 mmol/L (98-107); CREATININE 0.93 mg/dL (0.55-1.02); POTASSIUM 4.5 mmol/L (3.5-5.1); SGOT/AST 7 IU/L (3-35); SGPT/ALT 13 U/L (12-78); SODIUM 136 mmol/L (136-145); TOTAL PROTEIN 7.4 gm/dL (6.4-8.2)
== END | disposition home or self-care (01) ==
LOC: CT 11:00 → LAB 13:54 → CT 14:00
PROVIDERS: Internal Medicine Hematology & Oncology
DX: C34.92 Malignant neoplasm of unspecified part of left bronchus or lung (principal); C34.32 Malignant neoplasm of lower lobe, left bronchus or lung; D05.11 Intraductal carcinoma in situ of right breast; Z85.42 Personal history of malignant neoplasm of other parts of uterus

== ENCOUNTER 2020-07-01 15:28 | Emergency (ER) | payer MEDICARE ==
[~2020-07-01] VITALS: Ht 165.1 cm; Wt 135.6 kg
[2020-07-01 16:13] LABS: BASO % 0.2 % (0.0-1.0); EOS # 0.2 10*3/uL (0.0-0.4); HEMATOCRIT 38.9 % (37.0-47.0); LYMPH # 1.1 10*3/uL (1.3-4.4); LYMPH % 12.6 % (27.0-41.0); MEAN CELL VOLUME 84.6 fl (81.0-99.0); MEAN CORPUSCULAR HGB 25.4 pg (27.0-31.0); MEAN CORPUSCULAR HGB CONC 30.1 g/dl (33.0-37.0); MEAN PLATELET VOLUME 9.6 fl (9.6-12.3); MONO # 0.4 10*3/uL (0.1-1.0); MONO % 4.9 % (3.0-9.0); NEUT # 6.8 10*3/uL (2.3-7.9); NEUT % 79.6 % (47.0-73.0); PLATELET COUNT AUTOMATED 277 10*3/uL (130-400); RED CELL DISTRI WIDTH 15.4 % (0-14.5); WHITE BLOOD COUNT 8.5 10*3/uL (4.8-10.8)
[2020-07-01 16:26] LABS: ACT PARTIAL THROMBO TIME 25.2 SECONDS (20.0-32.1)
[2020-07-01 16:32] LABS: ALBUMIN 2.7 gm/dl (3.1-4.5); ALKALINE PHOSPHATASE 74 U/L (45-117); BUN 13 mg/dl (7-24); CHLORIDE 108 mmol/L (98-107); CREATININE 0.85 mg/dL (0.55-1.02); POTASSIUM 4.3 mmol/L (3.5-5.1); SGOT/AST 7 IU/L (3-35); SGPT/ALT 10 U/L (12-78); SODIUM 138 mmol/L (136-145); TOTAL PROTEIN 7.3 gm/dL (6.4-8.2)
[2020-07-01 16:37] LABS: TROPONIN I < 0.015 ng/ml (<0.045)
[2020-07-01 16:40] LABS: THYROID STIM HORMONE (HS) 0.138 uIU/ml (0.358-4.75)
== END 2020-07-01 17:38 | disposition home or self-care (01) ==
LOC: EDSTATUS 15:28 → ED 15:29
PROVIDERS: Emergency Medicine
DX: I48.92 Unspecified atrial flutter (principal); E03.9 Hypothyroidism, unspecified; I10 Essential (primary) hypertension; E78.5 Hyperlipidemia, unspecified; I48.0 Paroxysmal atrial fibrillation; Z88.8 Allergy status to other drugs, medicaments and biological substances; Z79.899 Other long term (current) drug therapy; Z79.01 Long term (current) use of anticoagulants

== ENCOUNTER → 2020-07-11 | Outpatient (CLI) | payer MEDICARE | END | disposition home or self-care (01) | LOC: CT 13:17 | PROVIDERS: ATTEND Internal Medicine Hematology & Oncology | DX: K57.30 Diverticulosis of large intestine without perforation or abscess without bleeding (principal); K43.9 Ventral hernia without obstruction or gangrene; M47.815 Spondylosis without myelopathy or radiculopathy, thoracolumbar region; D05.11 Intraductal carcinoma in situ of right breast; C34.92 Malignant neoplasm of unspecified part of left bronchus or lung; C34.32 Malignant neoplasm of lower lobe, left bronchus or lung; Z85.42 Personal history of malignant neoplasm of other parts of uterus; Z51.11 Encounter for antineoplastic chemotherapy; Z51.12 Encounter for antineoplastic immunotherapy ==

== ENCOUNTER → 2020-10-15 | Outpatient (CLI) | payer MEDICARE ==
[~2020-10-15] MED LIST changes: +ATORVASTATIN CA40 M1 PO; +AUGMENTIN 875875 MG PO; +BUMETANIDE1 MG PO; +DILTIAZEM 24HR180 MG PO; +FLECAINIDE ACE100 M1 PO; +METOPROLOL SUC100 M1 PO; +METOPROLOL SUCC50 M1 PO; +NATURE'S BLEND F1 MG PO; +NYAMYC15 GM T; +OXYBUTYNIN CHLOR5 M1 PO; +PRAMIPEXOLE0.125 MG PO; +PREDNISONE10 MG PO
== END | disposition home or self-care (01) ==
LOC: CT 14:00
PROVIDERS: ATTEND Internal Medicine Hematology & Oncology
DX: K57.90 Diverticulosis of intestine, part unspecified, without perforation or abscess without bleeding (principal); K42.9 Umbilical hernia without obstruction or gangrene; E04.1 Nontoxic single thyroid nodule; R71.8 Other abnormality of red blood cells; C34.92 Malignant neoplasm of unspecified part of left bronchus or lung; I25.10 Atherosclerotic heart disease of native coronary artery without angina pectoris; R59.0 Localized enlarged lymph nodes; Z51.12 Encounter for antineoplastic immunotherapy; Z90.710 Acquired absence of both cervix and uterus; Z90.49 Acquired absence of other specified parts of digestive tract; Z85.42 Personal history of malignant neoplasm of other parts of uterus

== ENCOUNTER 2020-10-18 17:55 | Emergency (ER) | payer MEDICARE ==
[~2020-10-18] VITALS: Wt 140.2 kg
[~2020-10-18 17:55] MED LIST changes: -ATORVASTATIN CA40 M1 PO; -AUGMENTIN 875875 MG PO; -BUMETANIDE1 MG PO; -DILTIAZEM 24HR180 MG PO; -FLECAINIDE ACE100 M1 PO; -METOPROLOL SUC100 M1 PO; -METOPROLOL SUCC50 M1 PO; -NATURE'S BLEND F1 MG PO; -NYAMYC15 GM T; -OXYBUTYNIN CHLOR5 M1 PO; -PRAMIPEXOLE0.125 MG PO; -PREDNISONE10 MG PO
== END 2020-10-18 20:18 | disposition home or self-care (01) ==
LOC: ED 17:55
DX: R00.0 Tachycardia, unspecified (principal); Z88.8 Allergy status to other drugs, medicaments and biological substances; Z79.899 Other long term (current) drug therapy; Z87.891 Personal history of nicotine dependence

== ENCOUNTER 2020-10-24 17:24 | Inpatient (IN) | payer MEDICARE ==
[~2020-10-24] VITALS: Ht 165 cm; Wt 144.7 kg
[2020-10-24 17:30] VITALS: BP 158/66
[2020-10-24 18:26] LABS: HEMATOCRIT 35.1 % (37.0-47.0); MEAN CELL VOLUME 79.6 fl (81.0-99.0); MEAN CORPUSCULAR HGB 23.4 pg (27.0-31.0); MEAN CORPUSCULAR HGB CONC 29.3 g/dl (33.0-37.0); MEAN PLATELET VOLUME 9.3 fl (9.6-12.3); PLATELET COUNT AUTOMATED 420 10*3/uL (130-400); RED BLOOD COUNT 4.41 10*6/uL (4.10-5.10); RED CELL DISTRI WIDTH 16.1 % (0-14.5); WHITE BLOOD COUNT 22.1 10*3/uL (4.8-10.8)
[2020-10-24 18:37] LABS: ACT PARTIAL THROMBO TIME 24.3 SECONDS (20.0-32.1); INTERNATIONAL NORM RATIO 1.1 (2.0-3.5)
[2020-10-24 18:41] LABS: ALBUMIN 2.2 gm/dl (3.1-4.5); ALKALINE PHOSPHATASE 71 U/L (45-117); BUN 11 mg/dl (7-24); CHLORIDE 103 mmol/L (98-107); CREATININE 0.81 mg/dL (0.55-1.02); LIPASE 47 U/L (73-393); POTASSIUM 3.9 mmol/L (3.5-5.1); SGOT/AST 7 IU/L (3-35); SGPT/ALT 10 U/L (12-78); SODIUM 136 mmol/L (136-145); TOTAL PROTEIN 6.4 gm/dL (6.4-8.2)
[2020-10-24 18:42] LABS: TROPONIN I < 0.015 ng/ml (<0.045)
[2020-10-24 18:57] LABS: TOTAL CELLS COUNTED 100 #CELLS
[2020-10-24 18:58] LABS: BURR CELLS FEW; OVALOCYTES FEW; PLATELET SUFFICIENCY NORMAL (NORMAL)
[2020-10-24 20:25] VITALS: BP 136/95
[2020-10-24 20:29] LABS: BILIRUBIN 1+ (Negative); BLOOD Negative (Negative); CLARITY Cloudy (Clear); COLOR Dark Yellow (Yellow); GLUCOSE Negative (Negative); KETONE Trace (Negative); LEUKO ESTERASE Negative (Negative); NITRITE Negative (Negative); SPECIFIC GRAVITY >= 1.030 (1.001-1.030)
[2020-10-24 20:34] LABS: BACTERIA 2+
[2020-10-24 20:35] LABS: EPITHELIAL CELLS 0-2; FINE GRANULAR CAST 0-2; RBC 0-2 rbc/hpf (0-2); WBC 0-2 wbc/hpf (0-5)
[2020-10-24] MEDS ORDERED: DILTIAZEM 24HR180 MG PO (23:18)
[2020-10-24] MEDS ORDERED: TRAMADOL HCL50 MG PO (23:18)
[2020-10-24] MEDS ORDERED: OXYBUTYNIN CHLOR5 M1 PO (23:19)
[2020-10-24] MEDS ORDERED: METOPROLOL SUC100 M1 PO (23:20)
[2020-10-24] MEDS ORDERED: ATORVASTATIN CA40 M1 PO (23:24)
[2020-10-25] VITALS (7 sets, daily range): BP systolic 87–130; BP diastolic 40–70
[2020-10-25 05:36] LABS: ALBUMIN 1.9 gm/dl (3.1-4.5); ALKALINE PHOSPHATASE 61 U/L (45-117); BUN 13 mg/dl (7-24); CHLORIDE 101 mmol/L (98-107); CHOLESTEROL 87 mg/dL (<200); CREATININE 0.96 mg/dL (0.55-1.02); HDL CHOLESTEROL 29 mg/dl (40-60); LDH 178 U/L (84-246); LDL CHOLESTEROL 38 mg/dL (9-159); POTASSIUM 4.2 mmol/L (3.5-5.1); SGOT/AST 5 IU/L (3-35); SGPT/ALT 8 U/L (12-78); SODIUM 133 mmol/L (136-145); TRIGLYCERIDES 101 mg/dl (<150); VLDL CHOLESTEROL 20 mg/dL (6-40)
[2020-10-25 05:42] LABS: FREE T4 1.86 ng/dl (0.76-1.46); THYROID STIM HORMONE (HS) 0.228 uIU/ml (0.358-4.75); TOTAL PROTEIN 6.1 gm/dL (6.4-8.2)
[2020-10-25 05:57] LABS: HEMATOCRIT 30.5 % (37.0-47.0); MEAN CELL VOLUME 82.2 fl (81.0-99.0); MEAN CORPUSCULAR HGB 23.5 pg (27.0-31.0); MEAN CORPUSCULAR HGB CONC 28.5 g/dl (33.0-37.0); MEAN PLATELET VOLUME 9.7 fl (9.6-12.3); PLATELET COUNT AUTOMATED 347 10*3/uL (130-400); RED BLOOD COUNT 3.71 10*6/uL (4.10-5.10); RED CELL DISTRI WIDTH 16.3 % (0-14.5)
[2020-10-25 07:10] LABS: FERRITIN 150.3 ng/mL (10.0-291.0)
[2020-10-25 07:54] LABS: BURR CELLS MODERATE; PLATELET SUFFICIENCY NORMAL (NORMAL); TOTAL CELLS COUNTED 100 #CELLS
[2020-10-26] VITALS: BP 109/43
[2020-10-26 05:12] VITALS: BP 123/60
[2020-10-26 06:06] LABS: ALKALINE PHOSPHATASE 69 U/L (45-117); BUN 22 mg/dl (7-24); CHLORIDE 101 mmol/L (98-107); CREATININE 0.88 mg/dL (0.55-1.02); LDH 173 U/L (84-246); POTASSIUM 4.6 mmol/L (3.5-5.1); SGOT/AST 13 IU/L (3-35); SGPT/ALT 14 U/L (12-78); SODIUM 133 mmol/L (136-145); TOTAL PROTEIN 6.6 gm/dL (6.4-8.2)
[2020-10-26 06:09] LABS: MEAN CELL VOLUME 81.6 fl (81.0-99.0); MEAN CORPUSCULAR HGB 23.2 pg (27.0-31.0); MEAN CORPUSCULAR HGB CONC 28.4 g/dl (33.0-37.0); MEAN PLATELET VOLUME 9.9 fl (9.6-12.3); PLATELET COUNT AUTOMATED 352 10*3/uL (130-400); WHITE BLOOD COUNT 23.3 10*3/uL (4.8-10.8)
[2020-10-26 06:35] LABS: BURR CELLS FEW; OVALOCYTES FEW; PLATELET SUFFICIENCY NORMAL (NORMAL); POLYCHROMASIA SLIGHT; TOTAL CELLS COUNTED 100 #CELLS
[2020-10-26 08:00] VITALS: BP 118/88
[2020-10-26 11:59] VITALS: BP 120/88
[2020-10-26 16:45] VITALS: BP 128/56
[2020-10-26 20:00] VITALS: BP 144/78
[2020-10-27] VITALS: BP 128/64
[2020-10-27 06:51] LABS: HEMATOCRIT 32.7 % (37.0-47.0); MEAN CELL VOLUME 81.8 fl (81.0-99.0); MEAN CORPUSCULAR HGB CONC 28.1 g/dl (33.0-37.0); MEAN PLATELET VOLUME 9.8 fl (9.6-12.3); PLATELET COUNT AUTOMATED 428 10*3/uL (130-400); RED CELL DISTRI WIDTH 16.1 % (0-14.5); WHITE BLOOD COUNT 18.4 10*3/uL (4.8-10.8)
[2020-10-27 07:13] LABS: ALBUMIN 2.3 gm/dl (3.1-4.5); BUN 21 mg/dl (7-24); CHLORIDE 100 mmol/L (98-107); CREATININE 0.85 mg/dL (0.55-1.02); POTASSIUM 4.6 mmol/L (3.5-5.1); SGOT/AST 14 IU/L (3-35); SODIUM 134 mmol/L (136-145)
[2020-10-27 07:19] LABS: ALKALINE PHOSPHATASE 61 U/L (45-117); LDH 186 U/L (84-246); SGPT/ALT 20 U/L (12-78); TOTAL PROTEIN 6.6 gm/dL (6.4-8.2)
[2020-10-27 07:59] LABS: OVALOCYTES FEW; PLATELET SUFFICIENCY HIGH (NORMAL); TOTAL CELLS COUNTED 100 #CELLS
[2020-10-27 08:00] VITALS: BP 138/80
[2020-10-27 12:00] VITALS: BP 150/92
[2020-10-27 16:00] VITALS: BP 136/74
[2020-10-27 20:00] VITALS: BP 133/77
[2020-10-28] VITALS: BP 155/90
[2020-10-28 06:29] LABS: HEMATOCRIT 33.3 % (37.0-47.0); MEAN CELL VOLUME 80.8 fl (81.0-99.0); MEAN CORPUSCULAR HGB 23.3 pg (27.0-31.0); MEAN CORPUSCULAR HGB CONC 28.8 g/dl (33.0-37.0); MEAN PLATELET VOLUME 9.6 fl (9.6-12.3); PLATELET COUNT AUTOMATED 382 10*3/uL (130-400); RED BLOOD COUNT 4.12 10*6/uL (4.10-5.10); RED CELL DISTRI WIDTH 15.9 % (0-14.5); WHITE BLOOD COUNT 10.9 10*3/uL (4.8-10.8)
[2020-10-28 06:46] LABS: BUN 18 mg/dl (7-24); CHLORIDE 102 mmol/L (98-107); CREATININE 0.73 mg/dL (0.55-1.02); POTASSIUM 5.2 mmol/L (3.5-5.1); SODIUM 133 mmol/L (136-145)
[2020-10-28 07:29] LABS: PLATELET SUFFICIENCY NORMAL (NORMAL); TOTAL CELLS COUNTED 100 #CELLS
[2020-10-28 07:30] LABS: MICROCYTOSIS SLIGHT; OVALOCYTES FEW; POLYCHROMASIA SLIGHT
[2020-10-28 08:00] VITALS: BP 100/83
[2020-10-28 16:00] VITALS: BP 140/70; BP 153/76
[2020-10-28 20:00] VITALS: BP 154/87
[2020-10-29] VITALS: BP 155/61
[2020-10-29 07:34] LABS: BASO % 0.1 % (0.0-1.0); HEMATOCRIT 33.7 % (37.0-47.0); LYMPH # 0.7 10*3/uL (1.3-4.4); LYMPH % 6.8 % (27.0-41.0); MEAN CORPUSCULAR HGB 23.1 pg (27.0-31.0); MEAN CORPUSCULAR HGB CONC 29.7 g/dl (33.0-37.0); MEAN PLATELET VOLUME 9.8 fl (9.6-12.3); MONO # 0.4 10*3/uL (0.1-1.0); MONO % 4.1 % (3.0-9.0); NEUT # 8.6 10*3/uL (2.3-7.9); NEUT % 87.4 % (47.0-73.0); PLATELET COUNT AUTOMATED 410 10*3/uL (130-400); RED BLOOD COUNT 4.32 10*6/uL (4.10-5.10); RED CELL DISTRI WIDTH 15.9 % (0-14.5); WHITE BLOOD COUNT 9.8 10*3/uL (4.8-10.8)
[2020-10-29 07:41] LABS: BUN 17 mg/dl (7-24); CHLORIDE 97 mmol/L (98-107); CREATININE 0.72 mg/dL (0.55-1.02); POTASSIUM 4.6 mmol/L (3.5-5.1); SODIUM 133 mmol/L (136-145)
[2020-10-29 08:00] VITALS: BP 152/95
[2020-10-29 12:00] VITALS: BP 153/68
[2020-10-29] MEDS ORDERED: AUGMENTIN 875875 MG PO (12:43)
[2020-10-29] MEDS ORDERED: METOPROLOL SUCC50 M1 PO (12:43)
[2020-10-29] MEDS ORDERED: NATURE'S BLEND F1 MG PO (12:43)
== END 2020-10-29 17:33 | disposition home health service (06) | DRG 871 ==
LOC: ED 17:24 → EDHOLD 22:56 → 4E 22:56 → 5E 10-28 14:04
PROVIDERS: Internal Medicine; Physician Assistant; Social Worker Clinical; Student in an Organized Health Care Education/Training Program; ADMIT Emergency Medicine; ATTEND Emergency Medicine
DX: A41.9 Sepsis, unspecified organism (principal); J18.9 Pneumonia, unspecified organism; J96.01 Acute respiratory failure with hypoxia; E43 Unspecified severe protein-calorie malnutrition; J90 Pleural effusion, not elsewhere classified; E87.2 Acidosis; E87.1 Hypo-osmolality and hyponatremia; J98.11 Atelectasis; Z68.43 Body mass index [BMI] 50.0-59.9, adult; R65.20 Severe sepsis without septic shock; I48.0 Paroxysmal atrial fibrillation; Y83.8 Other surgical procedures as the cause of abnormal reaction of the patient, or of later complication, without mention of misadventure at the time of the procedure; E11.65 Type 2 diabetes mellitus with hyperglycemia; E11.22 Type 2 diabetes mellitus with diabetic chronic kidney disease; Z20.822 Contact with and (suspected) exposure to COVID-19; Z92.21 Personal history of antineoplastic chemotherapy; Z92.3 Personal history of irradiation; Z85.028 Personal history of other malignant neoplasm of stomach; Z82.5 Family history of asthma and other chronic lower respiratory diseases; Z83.3 Family history of diabetes mellitus; Z82.49 Family history of ischemic heart disease and other diseases of the circulatory system; Z88.5 Allergy status to narcotic agent; Z88.8 Allergy status to other drugs, medicaments and biological substances; Z79.899 Other long term (current) drug therapy; Z90.710 Acquired absence of both cervix and uterus; Z98.51 Tubal ligation status; Z90.12 Acquired absence of left breast and nipple; Z90.49 Acquired absence of other specified parts of digestive tract; Z87.891 Personal history of nicotine dependence; Y92.89 Other specified places as the place of occurrence of the external cause

== ENCOUNTER 2020-12-03 18:44 | Inpatient (IN) | payer MEDICARE ==
[~2020-12-03] VITALS: Ht 162.5 cm; Wt 132.2 kg
[~2020-12-03 18:44] MED LIST changes: +ATORVASTATIN CA40 M1 PO; +AUGMENTIN 875875 MG PO; +DILTIAZEM 24HR180 MG PO; +METOPROLOL SUC100 M1 PO; +METOPROLOL SUCC50 M1 PO; +NATURE'S BLEND F1 MG PO; +OXYBUTYNIN CHLOR5 M1 PO
[2020-12-03 18:57] VITALS: BP 102/36
[2020-12-03 20:00] LABS: HEMATOCRIT 25.9 % (37.0-47.0); MEAN CELL VOLUME 77.5 fl (81.0-99.0); MEAN CORPUSCULAR HGB 22.8 pg (27.0-31.0); MEAN CORPUSCULAR HGB CONC 29.3 g/dl (33.0-37.0); MEAN PLATELET VOLUME 10.7 fl (9.6-12.3); PLATELET COUNT AUTOMATED 169 10*3/uL (130-400); RED BLOOD COUNT 3.34 10*6/uL (4.10-5.10); RED CELL DISTRI WIDTH 18.2 % (0-14.5)
[2020-12-03 20:15] LABS: ALBUMIN 1.8 gm/dl (3.1-4.5); ALKALINE PHOSPHATASE 69 U/L (45-117); BUN 18 mg/dl (7-24); CHLORIDE 100 mmol/L (98-107); CREATININE 0.83 mg/dL (0.55-1.02); POTASSIUM 4.1 mmol/L (3.5-5.1); SGOT/AST 8 IU/L (3-35); SGPT/ALT 20 U/L (12-78); SODIUM 132 mmol/L (136-145); TOTAL PROTEIN 5.8 gm/dL (6.4-8.2)
[2020-12-03 20:29] LABS: WHITE BLOOD COUNT 0.1 10*3/uL (4.8-10.8)
[2020-12-03 21:34] VITALS: BP 152/58
[2020-12-03 21:41] LABS: ATYPICAL LYMPHS 4 % (0-0); BASOPHILS 6 % (0-1); TOTAL CELLS COUNTED 50 #CELLS
[2020-12-03 21:42] LABS: PLATELET SUFFICIENCY NORMAL (NORMAL)
[2020-12-03 21:43] LABS: MICROCYTOSIS SLIGHT; OVALOCYTES FEW
[2020-12-04] VITALS (10 sets, daily range): BP systolic 70–157; BP diastolic 40–117
[2020-12-04 06:20] LABS: HEMATOCRIT 27.1 % (37.0-47.0); MEAN CELL VOLUME 76.8 fl (81.0-99.0); MEAN CORPUSCULAR HGB 23.2 pg (27.0-31.0); MEAN CORPUSCULAR HGB CONC 30.3 g/dl (33.0-37.0); MEAN PLATELET VOLUME 10.7 fl (9.6-12.3); PLATELET COUNT AUTOMATED 162 10*3/uL (130-400); RED BLOOD COUNT 3.53 10*6/uL (4.10-5.10); RED CELL DISTRI WIDTH 18.1 % (0-14.5)
[2020-12-04 06:24] LABS: BUN 20 mg/dl (7-24); CHLORIDE 100 mmol/L (98-107); CREATININE 0.81 mg/dL (0.55-1.02); POTASSIUM 4.7 mmol/L (3.5-5.1); SODIUM 134 mmol/L (136-145)
[2020-12-04 06:34] LABS: WHITE BLOOD COUNT 0.1 10*3/uL (4.8-10.8)
[2020-12-04 07:22] LABS: BILIRUBIN Negative (Negative); BLOOD Negative (Negative); CLARITY Cloudy (Clear); COLOR Yellow (Yellow); GLUCOSE Negative (Negative); KETONE Trace (Negative); LEUKO ESTERASE Negative (Negative); NITRITE Negative (Negative); SPECIFIC GRAVITY 1.015 (1.001-1.030); UROBILINOGEN 0.2 E.U./dl (0.0-1.0)
[2020-12-04 07:42] LABS: BACTERIA 3+; EPITHELIAL CELLS 0-2; RBC 0-2 rbc/hpf (0-2); URIC ACID CRYSTALS 2+
[2020-12-04 08:14] LABS: BASOPHILS 1 % (0-1); TOTAL CELLS COUNTED 100 #CELLS
[2020-12-04 08:15] LABS: BURR CELLS FEW; MICROCYTOSIS SLIGHT; OVALOCYTES FEW; PLATELET SUFFICIENCY NORMAL (NORMAL)
[2020-12-04] MEDS ORDERED: PRAMIPEXOLE0.125 MG PO (11:01)
[2020-12-05 06:43] LABS: HEMATOCRIT 25.1 % (37.0-47.0); MEAN CELL VOLUME 75.1 fl (81.0-99.0); MEAN CORPUSCULAR HGB 22.8 pg (27.0-31.0); MEAN CORPUSCULAR HGB CONC 30.3 g/dl (33.0-37.0); MEAN PLATELET VOLUME 10.5 fl (9.6-12.3); PLATELET COUNT AUTOMATED 140 10*3/uL (130-400); RED BLOOD COUNT 3.34 10*6/uL (4.10-5.10); RED CELL DISTRI WIDTH 18.1 % (0-14.5)
[2020-12-05 06:50] LABS: ALKALINE PHOSPHATASE 66 U/L (45-117); BUN 20 mg/dl (7-24); CHLORIDE 102 mmol/L (98-107); CREATININE 0.78 mg/dL (0.55-1.02); POTASSIUM 4.2 mmol/L (3.5-5.1); SGOT/AST 11 IU/L (3-35); SGPT/ALT 28 U/L (12-78); SODIUM 137 mmol/L (136-145)
[2020-12-05 06:56] LABS: WHITE BLOOD COUNT 0.1 10*3/uL (4.8-10.8)
[2020-12-05 07:40] LABS: OVALOCYTES FEW; PLATELET SUFFICIENCY NORMAL (NORMAL); TOTAL CELLS COUNTED 100 #CELLS
[2020-12-05 08:00] VITALS: BP 138/76
[2020-12-05 12:00] VITALS: BP 102/50
[2020-12-05 16:00] VITALS: BP 119/55
[2020-12-05 20:00] VITALS: BP 139/60
[2020-12-06] VITALS (7 sets, daily range): BP systolic 111–146; BP diastolic 50–90
[2020-12-06 06:48] LABS: HEMATOCRIT 24.4 % (37.0-47.0); MEAN CELL VOLUME 76.5 fl (81.0-99.0); MEAN CORPUSCULAR HGB 22.9 pg (27.0-31.0); MEAN CORPUSCULAR HGB CONC 29.9 g/dl (33.0-37.0); MEAN PLATELET VOLUME 10.3 fl (9.6-12.3); PLATELET COUNT AUTOMATED 123 10*3/uL (130-400); RED BLOOD COUNT 3.19 10*6/uL (4.10-5.10); RED CELL DISTRI WIDTH 18.3 % (0-14.5)
[2020-12-06 06:50] LABS: WHITE BLOOD COUNT 0.8 10*3/uL (4.8-10.8)
[2020-12-06 07:00] LABS: BUN 23 mg/dl (7-24); CHLORIDE 100 mmol/L (98-107); CREATININE 0.83 mg/dL (0.55-1.02); POTASSIUM 4.2 mmol/L (3.5-5.1); SODIUM 137 mmol/L (136-145)
[2020-12-06 07:16] LABS: OVALOCYTES MODERATE; PLATELET SUFFICIENCY LOW (NORMAL); ROULEAUX MODERATE; TOTAL CELLS COUNTED 100 #CELLS
[2020-12-07] VITALS: BP 122/68
[2020-12-07 06:49] LABS: HEMATOCRIT 26.8 % (37.0-47.0); MEAN CELL VOLUME 77.5 fl (81.0-99.0); MEAN CORPUSCULAR HGB 22.5 pg (27.0-31.0); MEAN CORPUSCULAR HGB CONC 29.1 g/dl (33.0-37.0); MEAN PLATELET VOLUME 10.9 fl (9.6-12.3); PLATELET COUNT AUTOMATED 109 10*3/uL (130-400); RED BLOOD COUNT 3.46 10*6/uL (4.10-5.10); RED CELL DISTRI WIDTH 18.6 % (0-14.5); WHITE BLOOD COUNT 5.7 10*3/uL (4.8-10.8)
[2020-12-07 07:21] LABS: BURR CELLS FEW; OVALOCYTES FEW; PLATELET SUFFICIENCY LOW (NORMAL); TOTAL CELLS COUNTED 100 #CELLS; TOXIC GRANULATION MARKED
[2020-12-07 07:22] LABS: MICROCYTOSIS SLIGHT; ROULEAUX SLIGHT; SCHISTOCYTES FEW
[2020-12-07 07:24] LABS: BUN 31 mg/dl (7-24); CHLORIDE 100 mmol/L (98-107); SODIUM 135 mmol/L (136-145)
[2020-12-07 08:00] VITALS: BP 155/60
[2020-12-07] MEDS ORDERED: PREDNISONE10 MG PO (09:58)
[2020-12-07] MEDS ORDERED: FLECAINIDE ACE100 M1 PO (09:58)
[2020-12-07] MEDS ORDERED: BUMETANIDE1 MG PO (09:58)
[2020-12-07] MEDS ORDERED: NYAMYC15 GM T (11:08)
== END 2020-12-07 11:04 | disposition home health service (06) | DRG 291 ==
LOC: ED 18:44 → EDHOLD 22:16 → 5E 12-04 07:13
PROVIDERS: Internal Medicine; Student in an Organized Health Care Education/Training Program; ADMIT Student in an Organized Health Care Education/Training Program; ATTEND Student in an Organized Health Care Education/Training Program
DX: I11.0 Hypertensive heart disease with heart failure (principal); J18.9 Pneumonia, unspecified organism; J96.01 Acute respiratory failure with hypoxia; E43 Unspecified severe protein-calorie malnutrition; J44.1 Chronic obstructive pulmonary disease with (acute) exacerbation; E87.1 Hypo-osmolality and hyponatremia; C16.9 Malignant neoplasm of stomach, unspecified; C78.89 Secondary malignant neoplasm of other digestive organs; I48.92 Unspecified atrial flutter; Z68.43 Body mass index [BMI] 50.0-59.9, adult; I50.43 Acute on chronic combined systolic (congestive) and diastolic (congestive) heart failure; D70.1 Agranulocytosis secondary to cancer chemotherapy; T45.1X5A Adverse effect of antineoplastic and immunosuppressive drugs, initial encounter; E78.5 Hyperlipidemia, unspecified; I48.0 Paroxysmal atrial fibrillation; M54.32 Sciatica, left side; M54.31 Sciatica, right side; E66.01 Morbid (severe) obesity due to excess calories; E11.65 Type 2 diabetes mellitus with hyperglycemia; D50.9 Iron deficiency anemia, unspecified; Z20.822 Contact with and (suspected) exposure to COVID-19; Z88.6 Allergy status to analgesic agent; Z88.8 Allergy status to other drugs, medicaments and biological substances; Z90.49 Acquired absence of other specified parts of digestive tract; Z90.12 Acquired absence of left breast and nipple; Z98.51 Tubal ligation status; Z87.891 Personal history of nicotine dependence; Z83.6 Family history of other diseases of the respiratory system; Z82.49 Family history of ischemic heart disease and other diseases of the circulatory system; Z83.3 Family history of diabetes mellitus; Z85.3 Personal history of malignant neoplasm of breast

== ENCOUNTER → 2021-03-22 | Outpatient (CLI) | payer MEDICARE ==
[~2021-03-22] MED LIST changes: +BUMETANIDE1 MG PO; +FLECAINIDE ACE100 M1 PO; +NYAMYC15 GM T; +PRAMIPEXOLE0.125 MG PO; +PREDNISONE10 MG PO
[2021-03-22 09:53] LABS: CREATININE 0.82 mg/dL (0.55-1.02)
== END | disposition home or self-care (01) ==
LOC: LAB 08:36 → CT 08:36
PROVIDERS: Radiology Diagnostic Radiology; ATTEND Internal Medicine Hematology & Oncology
DX: C34.32 Malignant neoplasm of lower lobe, left bronchus or lung (principal); C34.92 Malignant neoplasm of unspecified part of left bronchus or lung; R71.8 Other abnormality of red blood cells; R11.0 Nausea; M47.817 Spondylosis without myelopathy or radiculopathy, lumbosacral region; M48.061 Spinal stenosis, lumbar region without neurogenic claudication; K43.9 Ventral hernia without obstruction or gangrene; K86.89 Other specified diseases of pancreas; R91.8 Other nonspecific abnormal finding of lung field; D70.0 Congenital agranulocytosis; Z85.42 Personal history of malignant neoplasm of other parts of uterus

== ENCOUNTER → 2021-06-21 | Outpatient (CLI) | payer MEDICARE ==
[2021-06-21 11:41] LABS: BUN 10 mg/dl (7-24); CREATININE 0.67 mg/dL (0.55-1.02)
== END | disposition home or self-care (01) ==
LOC: CT 11:00 → LAB 11:02
PROVIDERS: ATTEND Internal Medicine Hematology & Oncology
DX: C34.92 Malignant neoplasm of unspecified part of left bronchus or lung (principal); C34.32 Malignant neoplasm of lower lobe, left bronchus or lung; Z51.11 Encounter for antineoplastic chemotherapy; Z51.12 Encounter for antineoplastic immunotherapy; R71.0 Precipitous drop in hematocrit; R11.0 Nausea; D70.1 Agranulocytosis secondary to cancer chemotherapy; D05.11 Intraductal carcinoma in situ of right breast; Z85.42 Personal history of malignant neoplasm of other parts of uterus; J90 Pleural effusion, not elsewhere classified; J18.1 Lobar pneumonia, unspecified organism; K76.0 Fatty (change of) liver, not elsewhere classified; K43.9 Ventral hernia without obstruction or gangrene; N26.1 Atrophy of kidney (terminal); R59.0 Localized enlarged lymph nodes

== ENCOUNTER → 2022-02-12 | Outpatient (CLI) | payer MEDICARE | END | disposition home or self-care (01) | LOC: CT 00:46 | PROVIDERS: ATTEND Internal Medicine | DX: I67.82 Cerebral ischemia (principal); G93.89 Other specified disorders of brain ==

== ENCOUNTER 2022-03-13 20:41 | Inpatient (IN) | payer MEDICARE ==
[~2022-03-13] VITALS: Ht 165.1 cm; Wt 104.3 kg
[2022-03-13 21:03] LABS: BASO % 0.3 % (0.0-1.0); EOS # 0.1 10*3/uL (0.0-0.4); EOS % 1.4 % (1.0-4.0); HEMATOCRIT 24.2 % (37.0-47.0); LYMPH # 1.2 10*3/uL (1.3-4.4); LYMPH % 17.7 % (27.0-41.0); MEAN CELL VOLUME 84.3 fl (81.0-99.0); MEAN CORPUSCULAR HGB 27.2 pg (27.0-31.0); MEAN CORPUSCULAR HGB CONC 32.2 g/dl (33.0-37.0); MEAN PLATELET VOLUME 9.2 fl (9.6-12.3); MONO # 0.4 10*3/uL (0.1-1.0); MONO % 5.9 % (3.0-9.0); NEUT # 5.1 10*3/uL (2.3-7.9); NEUT % 74.1 % (47.0-73.0); PLATELET COUNT AUTOMATED 287 10*3/uL (130-400); RED BLOOD COUNT 2.87 10*6/uL (4.10-5.10); RED CELL DISTRI WIDTH 15.5 % (0-14.5); WHITE BLOOD COUNT 6.9 10*3/uL (4.8-10.8)
[2022-03-13 21:09] VITALS: BP 98/41
[2022-03-13 21:16] LABS: BILIRUBIN Negative (Negative); BLOOD Trace-Intact (Negative); CLARITY Cloudy (Clear); COLOR Yellow (Yellow); GLUCOSE Negative (Negative); KETONE Negative (Negative); LEUKO ESTERASE 2+ (Negative); NITRITE Positive (Negative); SPECIFIC GRAVITY 1.015 (1.001-1.030); UROBILINOGEN 0.2 E.U./dl (0.0-1.0)
[2022-03-13 21:26] LABS: CREATININE 1.22 mg/dL (0.55-1.02); TOTAL PROTEIN 4.7 gm/dL (6.4-8.2)
[2022-03-13 21:26] LABS: BACTERIA 2+; WBC 16-20 wbc/hpf (0-5)
[2022-03-13 21:30] LABS: POTASSIUM 2.3 mmol/L (3.5-5.1)
[2022-03-13 22:51] VITALS: BP 108/39
[2022-03-13 22:53] VITALS: BP 112/59
[2022-03-13] MEDS ORDERED: ACETAZOLAMIDE250 MG PO (22:58)
[2022-03-13] MEDS ORDERED: DILTIAZEM CD240 MG PO (22:59)
[2022-03-13] MEDS ORDERED: TYLENOL325 M1 PO (23:00)
[2022-03-13] MEDS ORDERED: Zaroxolyn,Diul2.5 MG PO (23:01)
[2022-03-13] MEDS ORDERED: ELIQUIS5 M1 PO (23:03)
[2022-03-13] MEDS ORDERED: POTASSIUM CHLO10 ME5 PO (23:04)
[2022-03-13] MEDS ORDERED: MIRAPEX0.125 M1 PO (23:06)
[2022-03-13] MEDS ORDERED: FAMOTIDINE20 M1 PO (23:07)
[2022-03-14] VITALS (9 sets, daily range): BP systolic 90–129; BP diastolic 33–94
[2022-03-14 05:07] LABS: ALKALINE PHOSPHATASE 106 U/L (45-117); BUN 18 mg/dl (7-24); CHLORIDE 101 mmol/L (98-107); CHOLESTEROL 73 mg/dL (<200); CREATININE 1.07 mg/dL (0.55-1.02); LDL CHOLESTEROL 34 mg/dL (9-159); POTASSIUM 2.8 mmol/L (3.5-5.1); SGOT/AST 18 IU/L (3-35); SGPT/ALT 15 U/L (12-78); SODIUM 139 mmol/L (136-145); TOTAL PROTEIN 4.8 gm/dL (6.4-8.2); TRIGLYCERIDES 95 mg/dl (<150)
[2022-03-14 05:10] LABS: FREE T4 1.28 ng/dl (0.76-1.46)
[2022-03-14 05:13] LABS: THYROID STIM HORMONE (HS) 0.302 uIU/ml (0.358-4.75)
[2022-03-14] MEDS ORDERED: BUMETANIDE2 MG PO (05:22)
[2022-03-14] MEDS ORDERED: LEXAPRO10 MG PO (05:23)
[2022-03-14] MEDS ORDERED: MAGOX 400400 MG PO (05:24)
[2022-03-14] MEDS ORDERED: METOPROLOL TART50 M1 PO (05:28)
[2022-03-14] MEDS ORDERED: ONDANSETRON HYDR8 MG PO (05:29)
[2022-03-14] MEDS ORDERED: FEOSOL325 MG PO (05:31)
[2022-03-14 06:13] LABS: BASO % 0.4 % (0.0-1.0); EOS # 0.2 10*3/uL (0.0-0.4); EOS % 2.8 % (1.0-4.0); LYMPH # 1.4 10*3/uL (1.3-4.4); LYMPH % 21.5 % (27.0-41.0); MEAN CELL VOLUME 86.5 fl (81.0-99.0); MEAN CORPUSCULAR HGB 27.3 pg (27.0-31.0); MEAN CORPUSCULAR HGB CONC 31.6 g/dl (33.0-37.0); MEAN PLATELET VOLUME 10.2 fl (9.6-12.3); MONO # 0.4 10*3/uL (0.1-1.0); NEUT # 4.6 10*3/uL (2.3-7.9); NEUT % 68.7 % (47.0-73.0); PLATELET COUNT AUTOMATED 320 10*3/uL (130-400); RED BLOOD COUNT 2.89 10*6/uL (4.10-5.10); RED CELL DISTRI WIDTH 15.6 % (0-14.5); WHITE BLOOD COUNT 6.7 10*3/uL (4.8-10.8)
[2022-03-14 06:34] LABS: VITAMIN D, 25-HYDROXY 61.8 ng/mL (30-100)
[2022-03-14 08:15] LABS: BUN 18 mg/dl (7-24); CHLORIDE 101 mmol/L (98-107); CREATININE 0.99 mg/dL (0.55-1.02); POTASSIUM 2.8 mmol/L (3.5-5.1); SODIUM 137 mmol/L (136-145)
[2022-03-14 14:06] LABS: BUN 17 mg/dl (7-24); CHLORIDE 107 mmol/L (98-107); SODIUM 141 mmol/L (136-145)
[2022-03-14 14:07] LABS: POTASSIUM 4.2 mmol/L (3.5-5.1)
[2022-03-15] VITALS: BP 101/56
[2022-03-15 05:56] LABS: ALKALINE PHOSPHATASE 103 U/L (45-117); BUN 15 mg/dl (7-24); CHLORIDE 102 mmol/L (98-107); CREATININE 0.89 mg/dL (0.55-1.02); SGOT/AST 21 IU/L (3-35); SGPT/ALT 13 U/L (12-78); SODIUM 136 mmol/L (136-145); TOTAL PROTEIN 4.7 gm/dL (6.4-8.2)
[2022-03-15 05:57] LABS: POTASSIUM 2.9 mmol/L (3.5-5.1)
[2022-03-15 06:40] LABS: BASO % 0.4 % (0.0-1.0); EOS # 0.2 10*3/uL (0.0-0.4); EOS % 3.2 % (1.0-4.0); HEMATOCRIT 25.4 % (37.0-47.0); LYMPH # 1.5 10*3/uL (1.3-4.4); LYMPH % 19.3 % (27.0-41.0); MEAN CELL VOLUME 85.8 fl (81.0-99.0); MEAN CORPUSCULAR HGB 27.7 pg (27.0-31.0); MEAN CORPUSCULAR HGB CONC 32.3 g/dl (33.0-37.0); MEAN PLATELET VOLUME 9.9 fl (9.6-12.3); MONO # 0.4 10*3/uL (0.1-1.0); MONO % 5.8 % (3.0-9.0); NEUT # 5.3 10*3/uL (2.3-7.9); NEUT % 70.6 % (47.0-73.0); PLATELET COUNT AUTOMATED 325 10*3/uL (130-400); RED BLOOD COUNT 2.96 10*6/uL (4.10-5.10); RED CELL DISTRI WIDTH 15.8 % (0-14.5); WHITE BLOOD COUNT 7.6 10*3/uL (4.8-10.8)
[2022-03-15 08:00] VITALS: BP 104/52
[2022-03-15 12:00] VITALS: BP 102/63
[2022-03-15 13:32] LABS: ALKALINE PHOSPHATASE 106 U/L (45-117); BUN 14 mg/dl (7-24); CHLORIDE 105 mmol/L (98-107); SGOT/AST 29 IU/L (3-35); SGPT/ALT 15 U/L (12-78); SODIUM 138 mmol/L (136-145)
[2022-03-15 13:36] LABS: POTASSIUM 3.8 mmol/L (3.5-5.1)
[2022-03-15 16:00] VITALS: BP 102/54
[2022-03-15 20:00] VITALS: BP 124/64
[2022-03-16] VITALS: BP 118/58
[2022-03-16 05:34] LABS: BUN 14 mg/dl (7-24); CHLORIDE 102 mmol/L (98-107); CREATININE 0.87 mg/dL (0.55-1.02); SODIUM 136 mmol/L (136-145)
[2022-03-16 06:37] LABS: BASO % 0.3 % (0.0-1.0); EOS # 0.3 10*3/uL (0.0-0.4); EOS % 4.6 % (1.0-4.0); HEMATOCRIT 24.8 % (37.0-47.0); LYMPH # 1.5 10*3/uL (1.3-4.4); LYMPH % 21.5 % (27.0-41.0); MEAN CELL VOLUME 86.1 fl (81.0-99.0); MEAN CORPUSCULAR HGB 27.4 pg (27.0-31.0); MEAN CORPUSCULAR HGB CONC 31.9 g/dl (33.0-37.0); MEAN PLATELET VOLUME 9.7 fl (9.6-12.3); MONO # 0.4 10*3/uL (0.1-1.0); MONO % 6.3 % (3.0-9.0); NEUT # 4.6 10*3/uL (2.3-7.9); NEUT % 66.7 % (47.0-73.0); PLATELET COUNT AUTOMATED 341 10*3/uL (130-400); RED BLOOD COUNT 2.88 10*6/uL (4.10-5.10); RED CELL DISTRI WIDTH 15.8 % (0-14.5); WHITE BLOOD COUNT 6.9 10*3/uL (4.8-10.8)
[2022-03-16 08:00] VITALS: BP 96/46
[2022-03-16 12:00] VITALS: BP 80/52
[2022-03-16] MEDS ORDERED: LEVOFLOXACIN750 M2 PO (12:15)
[2022-03-16 14:44] VITALS: BP 98/48
[2022-03-16 16:00] VITALS: BP 112/46
== END 2022-03-16 18:26 | DRG 689 ==
LOC: ED 20:41 → 4E 22:24 → EDHOLD 22:24 → 4E 03-14 04:15
PROVIDERS: Family Medicine; Internal Medicine; Student in an Organized Health Care Education/Training Program; ADMIT Emergency Medicine; ATTEND Emergency Medicine
DX: N39.0 Urinary tract infection, site not specified (principal); N17.0 Acute kidney failure with tubular necrosis; G93.41 Metabolic encephalopathy; E43 Unspecified severe protein-calorie malnutrition; C79.9 Secondary malignant neoplasm of unspecified site; J96.10 Chronic respiratory failure, unspecified whether with hypoxia or hypercapnia; G21.9 Secondary parkinsonism, unspecified; I13.0 Hypertensive heart and chronic kidney disease with heart failure and stage 1 through stage 4 chronic kidney disease, or unspecified chronic kidney disease; I50.32 Chronic diastolic (congestive) heart failure; Z66 Do not resuscitate; Z20.822 Contact with and (suspected) exposure to COVID-19; C54.1 Malignant neoplasm of endometrium; D64.9 Anemia, unspecified; E87.6 Hypokalemia; N18.32 Chronic kidney disease, stage 3b; F41.9 Anxiety disorder, unspecified; I25.10 Atherosclerotic heart disease of native coronary artery without angina pectoris; J44.9 Chronic obstructive pulmonary disease, unspecified; I48.0 Paroxysmal atrial fibrillation; E66.9 Obesity, unspecified; F32.9 Major depressive disorder, single episode, unspecified; E78.5 Hyperlipidemia, unspecified; R13.10 Dysphagia, unspecified; S39.92XA Unspecified injury of lower back, initial encounter; E11.22 Type 2 diabetes mellitus with diabetic chronic kidney disease; B96.1 Klebsiella pneumoniae [K. pneumoniae] as the cause of diseases classified elsewhere; Z88.6 Allergy status to analgesic agent; Z88.8 Allergy status to other drugs, medicaments and biological substances; Z90.49 Acquired absence of other specified parts of digestive tract; Z90.710 Acquired absence of both cervix and uterus; Z90.12 Acquired absence of left breast and nipple; Z98.51 Tubal ligation status; Z82.49 Family history of ischemic heart disease and other diseases of the circulatory system; Z83.3 Family history of diabetes mellitus; Z83.6 Family history of other diseases of the respiratory system; Z85.118 Personal history of other malignant neoplasm of bronchus and lung; Z51.5 Encounter for palliative care; Z85.3 Personal history of malignant neoplasm of breast; Z68.38 Body mass index [BMI] 38.0-38.9, adult

== ENCOUNTER 2022-03-21 12:29 | Inpatient (IN) | payer MEDICARE, MEDICAID ==
[2022-03-21] VITALS: BP 94/46
[~2022-03-21] VITALS: Ht 165.1 cm; Wt 101.2 kg
[~2022-03-21 12:29] MED LIST changes: +ACETAZOLAMIDE250 MG PO; +BUMETANIDE2 MG PO; +ELIQUIS5 M1 PO; +FAMOTIDINE20 M1 PO; +FEOSOL325 MG PO; +LEVOFLOXACIN750 M2 PO; +LEXAPRO10 MG PO; +MAGOX 400400 MG PO; +METOPROLOL TART50 M1 PO; +MIRAPEX0.125 M1 PO; +ONDANSETRON HYDR8 MG PO; +POTASSIUM CHLO10 ME5 PO; +TYLENOL325 M1 PO; +Zaroxolyn,Diul2.5 MG PO
[2022-03-21 12:37] VITALS: BP 143/90
[2022-03-21 15:15] VITALS: BP 158/79
[2022-03-21 16:00] VITALS: BP 94/46
[2022-03-21 18:58] LABS: BASO % 0.2 % (0.0-1.0); EOS # 0.2 10*3/uL (0.0-0.4); EOS % 1.5 % (1.0-4.0); HEMATOCRIT 25.6 % (37.0-47.0); LYMPH # 0.9 10*3/uL (1.3-4.4); LYMPH % 7.7 % (27.0-41.0); MEAN CELL VOLUME 86.2 fl (81.0-99.0); MEAN CORPUSCULAR HGB 26.9 pg (27.0-31.0); MEAN CORPUSCULAR HGB CONC 31.3 g/dl (33.0-37.0); MONO # 0.5 10*3/uL (0.1-1.0); MONO % 4.6 % (3.0-9.0); NEUT # 9.7 10*3/uL (2.3-7.9); NEUT % 85.4 % (47.0-73.0); PLATELET COUNT AUTOMATED 319 10*3/uL (130-400); RED BLOOD COUNT 2.97 10*6/uL (4.10-5.10); RED CELL DISTRI WIDTH 16.4 % (0-14.5); WHITE BLOOD COUNT 11.4 10*3/uL (4.8-10.8)
[2022-03-21 19:06] LABS: INTERNATIONAL NORM RATIO 1.4 (2.0-3.5)
[2022-03-21 19:09] LABS: CREATININE 1.36 mg/dL (0.55-1.02); POTASSIUM 3.2 mmol/L (3.5-5.1)
[2022-03-21 20:30] VITALS: BP 92/50
[2022-03-21 23:33] VITALS: BP 92/40
[2022-03-22 02:43] VITALS: BP 90/48
[2022-03-22 06:23] LABS: BASO % 0.3 % (0.0-1.0); EOS # 0.2 10*3/uL (0.0-0.4); EOS % 2.3 % (1.0-4.0); HEMATOCRIT 25.2 % (37.0-47.0); LYMPH # 0.9 10*3/uL (1.3-4.4); LYMPH % 8.6 % (27.0-41.0); MEAN CELL VOLUME 86.9 fl (81.0-99.0); MEAN CORPUSCULAR HGB 26.9 pg (27.0-31.0); MEAN PLATELET VOLUME 9.9 fl (9.6-12.3); MONO # 0.4 10*3/uL (0.1-1.0); MONO % 3.9 % (3.0-9.0); NEUT # 8.5 10*3/uL (2.3-7.9); NEUT % 84.4 % (47.0-73.0); PLATELET COUNT AUTOMATED 319 10*3/uL (130-400); RED CELL DISTRI WIDTH 16.6 % (0-14.5)
[2022-03-22 06:26] LABS: POTASSIUM 3.1 mmol/L (3.5-5.1)
[2022-03-22 06:30] LABS: CREATININE 1.37 mg/dL (0.55-1.02); TOTAL PROTEIN 4.7 gm/dL (6.4-8.2)
[2022-03-22 06:31] VITALS: BP 88/40
[2022-03-22 08:00] VITALS: BP 100/80
[2022-03-22 10:41] LABS: BASO % 0.3 % (0.0-1.0); EOS # 0.2 10*3/uL (0.0-0.4); EOS % 1.6 % (1.0-4.0); LYMPH # 0.7 10*3/uL (1.3-4.4); LYMPH % 7.5 % (27.0-41.0); MEAN CELL VOLUME 88.7 fl (81.0-99.0); MEAN CORPUSCULAR HGB CONC 30.4 g/dl (33.0-37.0); MEAN PLATELET VOLUME 9.7 fl (9.6-12.3); MONO # 0.4 10*3/uL (0.1-1.0); MONO % 4.4 % (3.0-9.0); NEUT # 7.9 10*3/uL (2.3-7.9); NEUT % 85.7 % (47.0-73.0); PLATELET COUNT AUTOMATED 309 10*3/uL (130-400); RED BLOOD COUNT 2.82 10*6/uL (4.10-5.10); RED CELL DISTRI WIDTH 16.5 % (0-14.5); WHITE BLOOD COUNT 9.3 10*3/uL (4.8-10.8)
[2022-03-22 12:00] VITALS: BP 107/48
[2022-03-22 16:00] VITALS: BP 104/46
[2022-03-22 17:17] LABS: BASO % 0.2 % (0.0-1.0); EOS # 0.2 10*3/uL (0.0-0.4); EOS % 2.1 % (1.0-4.0); HEMATOCRIT 24.8 % (37.0-47.0); LYMPH # 0.8 10*3/uL (1.3-4.4); LYMPH % 7.4 % (27.0-41.0); MEAN CELL VOLUME 88.3 fl (81.0-99.0); MEAN CORPUSCULAR HGB 27.8 pg (27.0-31.0); MEAN CORPUSCULAR HGB CONC 31.5 g/dl (33.0-37.0); MEAN PLATELET VOLUME 9.6 fl (9.6-12.3); MONO # 0.4 10*3/uL (0.1-1.0); MONO % 3.9 % (3.0-9.0); NEUT # 9.6 10*3/uL (2.3-7.9); NEUT % 85.9 % (47.0-73.0); PLATELET COUNT AUTOMATED 301 10*3/uL (130-400); RED BLOOD COUNT 2.81 10*6/uL (4.10-5.10); RED CELL DISTRI WIDTH 16.6 % (0-14.5); WHITE BLOOD COUNT 11.2 10*3/uL (4.8-10.8)
[2022-03-22 20:00] VITALS: BP 92/66
[2022-03-23] VITALS: BP 94/46
[2022-03-23 06:19] LABS: POTASSIUM 2.7 mmol/L (3.5-5.1)
[2022-03-23 06:22] LABS: CREATININE 1.34 mg/dL (0.55-1.02)
[2022-03-23 06:31] LABS: BASO % 0.3 % (0.0-1.0); EOS # 0.2 10*3/uL (0.0-0.4); EOS % 1.8 % (1.0-4.0); HEMATOCRIT 24.7 % (37.0-47.0); LYMPH # 0.9 10*3/uL (1.3-4.4); LYMPH % 9.2 % (27.0-41.0); MEAN CELL VOLUME 86.1 fl (81.0-99.0); MEAN CORPUSCULAR HGB 26.8 pg (27.0-31.0); MEAN CORPUSCULAR HGB CONC 31.2 g/dl (33.0-37.0); MEAN PLATELET VOLUME 10.1 fl (9.6-12.3); MONO # 0.5 10*3/uL (0.1-1.0); MONO % 5.5 % (3.0-9.0); NEUT # 7.9 10*3/uL (2.3-7.9); NEUT % 82.5 % (47.0-73.0); PLATELET COUNT AUTOMATED 301 10*3/uL (130-400); RED BLOOD COUNT 2.87 10*6/uL (4.10-5.10); RED CELL DISTRI WIDTH 16.5 % (0-14.5); WHITE BLOOD COUNT 9.6 10*3/uL (4.8-10.8)
[2022-03-23 06:36] LABS: INTERNATIONAL NORM RATIO 1.3 (2.0-3.5)
[2022-03-23 08:00] VITALS: BP 95/40
[2022-03-23 12:00] VITALS: BP 92/50
[2022-03-23 16:00] VITALS: BP 90/52
[2022-03-23 20:00] VITALS: BP 105/44
[2022-03-24] VITALS: BP 118/52
[2022-03-24 08:00] VITALS: BP 96/50
[2022-03-24 12:00] VITALS: BP 100/45
[2022-03-24] MEDS ORDERED: OMEPRAZOLE MAGN20 MG PO (13:32)
[2022-03-24] MEDS ORDERED: ASPIRIN CHILDRE81 MG PO (13:32)
[2022-03-24] MEDS ORDERED: Carafate1 GM PO (13:32)
== END 2022-03-24 17:05 | DRG 64 ==
LOC: ED 12:29 → 5E 18:48 → EDHOLD 18:48 → 5E 19:47
PROVIDERS: Emergency Medicine; Hospitalist; ADMIT Student in an Organized Health Care Education/Training Program; ATTEND Student in an Organized Health Care Education/Training Program
DX: I63.89 Other cerebral infarction (principal); N17.0 Acute kidney failure with tubular necrosis; G93.41 Metabolic encephalopathy; C79.9 Secondary malignant neoplasm of unspecified site; K92.2 Gastrointestinal hemorrhage, unspecified; J96.11 Chronic respiratory failure with hypoxia; I50.32 Chronic diastolic (congestive) heart failure; F33.9 Major depressive disorder, recurrent, unspecified; Z66 Do not resuscitate; I48.0 Paroxysmal atrial fibrillation; Z51.5 Encounter for palliative care; M54.30 Sciatica, unspecified side; E78.2 Mixed hyperlipidemia; E11.9 Type 2 diabetes mellitus without complications; J44.9 Chronic obstructive pulmonary disease, unspecified; F41.9 Anxiety disorder, unspecified; E66.09 Other obesity due to excess calories; I25.10 Atherosclerotic heart disease of native coronary artery without angina pectoris; I11.0 Hypertensive heart disease with heart failure; C54.1 Malignant neoplasm of endometrium; C50.919 Malignant neoplasm of unspecified site of unspecified female breast; I08.3 Combined rheumatic disorders of mitral, aortic and tricuspid valves; I95.9 Hypotension, unspecified; Z90.49 Acquired absence of other specified parts of digestive tract; Z90.710 Acquired absence of both cervix and uterus; Z87.891 Personal history of nicotine dependence; Z98.51 Tubal ligation status; Z88.6 Allergy status to analgesic agent; Z88.8 Allergy status to other drugs, medicaments and biological substances; Z79.899 Other long term (current) drug therapy; Z82.49 Family history of ischemic heart disease and other diseases of the circulatory system; Z83.3 Family history of diabetes mellitus